=== PATIENT | male | born 1990 | race Caucasian/White ===

== ENCOUNTER 2018-11-30 10:44 | Emergency (ER) | payer SELFPAY ==
[2018-11-30] MEDS ORDERED: FLUORESCEIN SODIUM 1 MG/WRAP ONE (11:05)
[2018-11-30] MEDS ORDERED: TETRACAINE HCL 0.5% 2ML OPTH ONE (11:05)
--- NOTE | 2018-11-30 11:33 | EDPHYS ---
Physician Documentation [facility] Name: Fransisco Mata Age: 28 yrs Sex: Male : 1990 Arrival Date: 11/30/2018 Time: 10:46 Bed 17 Private MD: ED Physician Jonh Martinez HPI: 11/30 11:29 This 28 yrs old Male presents to ER via Ambulatory with complaints of Foreign miko Body In Eye. 11:29 The patient sustained Unknown. to the right eye. Onset: The symptoms/episode miko began/occurred yesterday, last night. Duration: the symptoms are continuous. Aggravated by blinking, light, opening eye, pressure, Alleviated by covering eye, lying down. Associated signs and symptoms: Pertinent positives: None. Pertinent negatives: None. Patient does not utilize any form of vision correction. Severity of symptoms: At their worst the symptoms were mild in the emergency department the symptoms are unchanged. The patient has not experienced similar symptoms in the past. Historical: - Allergies: 10:50 No Known Allergies; la1 - PMHx: 10:50 None; la1 - Immunization history:: Adult Immunizations up to date. - Social history:: Smoking status: Patient uses tobacco products, smokes one pack cigarettes per day. - Ebola Screening: : No symptoms or risks identified at this time. - Family history:: not pertinent. ROS: 11:29 Constitutional: Negative for fever, chills, and weight loss, ENT: Negative for injury, miko pain, and discharge, Neck: Negative for injury, pain, and swelling, Cardiovascular: Negative for chest pain, palpitations, and edema, Respiratory: Negative for shortness of breath, cough, wheezing, and pleuritic chest pain, Abdomen/GI: Negative for abdominal pain, nausea, vomiting, diarrhea, and constipation, Back: Negative for injury and pain, : Negative for injury, bleeding, discharge, and swelling, MS/Extremity: Negative for injury and deformity, Skin: Negative for injury, rash, and discoloration, Neuro: Negative for headache, weakness, numbness, tingling, and seizure, Psych: Negative for depression, anxiety, suicide ideation, homicidal ideation, and hallucinations, Allergy/Immunology: Negative for hives, rash, and allergies, Endocrine: Negative for neck swelling, polydipsia, polyuria, polyphagia, and marked weight changes, Hematologic/Lymphatic: Negative for swollen nodes, abnormal bleeding, and unusual bruising. 11:29 Eyes: Positive for foreign body sensation, pain, redness, of the iris of right eye and inner aspect of conjuctiva of right eye. Exam: 11:29 Constitutional: This is a well developed, well nourished patient who is awake, alert, miko and in no acute distress. Head/Face: Normocephalic, atraumatic. ENT: Nares patent. No nasal discharge, no septal abnormalities noted. Tympanic membranes are normal and external auditory canals are clear. Oropharynx with no redness, swelling, or masses, exudates, or evidence of obstruction, uvula midline. Mucous membranes moist. Neck: Trachea midline, no thyromegaly or masses palpated, and no cervical lymphadenopathy. Supple, full range of motion without nuchal rigidity, or vertebral point tenderness. No Meningismus. Chest/axilla: Normal chest wall appearance and motion. Nontender with no deformity. No lesions are appreciated. Cardiovascular: Regular rate and rhythm with a normal S1 and S2. No gallops, murmurs, or rubs. Normal PMI, no JVD. No pulse deficits. Respiratory: Lungs have equal breath sounds bilaterally, clear to auscultation and percussion. No rales, rhonchi or wheezes noted. No increased work of breathing, no retractions or nasal flaring. Abdomen/GI: Soft, non-tender, with normal bowel sounds. No distension or tympany. No guarding or rebound. No evidence of tenderness throughout. Back: No spinal tenderness. No costovertebral tenderness. Full range of motion. Skin: Warm, dry with normal turgor. Normal color with no rashes, no lesions, and no evidence of cellulitis. MS/ Extremity: Pulses equal, no cyanosis. Neurovascular intact. Full, normal range of motion. Neuro: Awake and alert, GCS 15, oriented to person, place, time, and situation. Cranial nerves II-XII grossly intact. Motor strength 5/5 in all extremities. Sensory grossly intact. Cerebellar exam normal. Normal gait. Psych: Awake, alert, with orientation to person, place and time. Behavior, mood, and affect are within normal limits. 11:29 Eyes: Pupils: no acute changes, equal, round, and reactive to light and accomodation, Extraocular movements: intact throughout, Conjunctiva: injected, Corneas: foreign body, on the right, at 3 o'clock, a fluorescein strip employed to appreciate the findings, Sclera: injected, Anterior chamber: normal, no acute changes, Lids and lashes: appear normal, no acute changes, Nystagmus: is not appreciated. Vital Signs: 10:50 BP 125 / 90; Pulse 84; Resp 16; Temp 97.5; Pulse Ox 98% on R/A; Weight 68.04 kg; Height la1 5 ft. 6 in. (167.64 cm); 10:50 Body Mass Index 24.21 (68.04 kg, 167.64 cm) la1 Visual Acuity: 10:55 Left Eye Visual acuity 20/100, Pupil size 4 mm, ; Right Eye Visual acuity 20/200, Pupil la1 size 4 mm, ; Both Eyes Visual acuity 20/100; Without Lenses; MDM: 10:51 Patient medically screened. [facility] 11:31 Data reviewed: vital signs, nurses notes. [facility] Administered Medications: 11:46 Drug: Tobrex 0.3 % 1 application Route: Ophthalmic; Site: right eye; em 11:48 Follow up: Response: No adverse reaction em 11:46 Drug: [place] 10 mg-325 mg 1 tabs Route: PO; em 11:49 Follow up: Response: Medication administered at discharge. em Disposition: 11/30/18 11:32 Discharged to Home. Impression: Injury of conjunctiva and corneal abrasion without foreign body - foreign body removed. - Condition is Stable. - Discharge Instructions: Corneal Abrasion, Corneal Abrasion, [id number]. - Prescriptions for Tobrex 0.3 % Ophthalmic ointment - apply 1 inch ribbon by OPHTHALMIC route 3 times per day; 3.5 gram. Tylenol- Codeine #3 300-30 mg Oral Tablet - take 2 tablet by ORAL route every 6 hours As needed; 30 tablet. - Medication Reconciliation Form, Thank You Letter, Antibiotic Education, Prescription Opioid Use, Work release form form. - Follow up: Nikolas Mayer MD; When: Tomorrow; Reason: Recheck today's complaints, Continuance of care, Re-evaluation by your physician. - Problem is new. - Symptoms have improved. Signatures: Jonh Martinez MD MD cha Munoz, Edgar, NEGATIVE ASSEMBLER NEGATIVE ASSEMBLERBo Mix RN RN la1 Corrections: (The following items were deleted from the chart) 11:50 11:32 11/30/2018 11:32 Discharged to Home. Impression: Injury of conjunctiva and em corneal abrasion without foreign body - foreign body removed. Condition is Stable. Forms are Medication Reconciliation Form, Thank You Letter, Antibiotic Education, Prescription Opioid Use. Follow up: Nikolas Mayer; When: Tomorrow; Reason: Recheck today's complaints, Continuance of care, Re-evaluation by your physician. Problem is new. Symptoms have improved. miko
--- NOTE | 2018-11-30 11:33 | ER ---
Nurse's Notes [facility] Name: Fransisco Mata Age: 28 yrs Sex: Male : 1990 Arrival Date: 11/30/2018 Time: 10:46 Bed 17 Private MD: Diagnosis: Injury of conjunctiva and corneal abrasion without foreign body-foreign body removed Presentation: 11/30 10:49 Presenting complaint: Patient states: I woke up this morning with something in my right la1 eye. Transition of care: patient was not received from another setting of care. Onset of symptoms was November 30, 2018. Risk Assessment: Do you want to hurt yourself or someone else? Patient reports no desire to harm self or others. Initial Sepsis Screen: Does the patient meet any 2 criteria? No. Patient's initial sepsis screen is negative. Does the patient have a suspected source of infection? No. Patient's initial sepsis screen is negative. Care prior to arrival: None. 10:49 Method Of Arrival: Ambulatory la1 10:49 Acuity: ANA 4 la1 Historical: - Allergies: 10:50 No Known Allergies; la1 - PMHx: 10:50 None; la1 - Immunization history:: Adult Immunizations up to date. - Social history:: Smoking status: Patient uses tobacco products, smokes one pack cigarettes per day. - Ebola Screening: : No symptoms or risks identified at this time. - Family history:: not pertinent. Screenin:56 Abuse screen: Denies threats or abuse. Nutritional screening: No deficits noted. la1 Tuberculosis screening: No symptoms or risk factors identified. Fall Risk None identified. Assessment: 10:55 General: Appears in no apparent distress. Behavior is calm, cooperative. Pain: la1 Complains of pain in right eye. Neuro: Level of Consciousness is awake, alert, obeys commands, Oriented to person, place, time, situation. Cardiovascular: Capillary refill < 3 seconds Patient's skin is warm and dry. EENT: Sclera/Cornea are reddened in outer aspect of conjuctiva of right eye and inner aspect of conjuctiva of right eye. 11:05 Reassessment: I agree with previous assessment. hb Vital Signs: 10:50 BP 125 / 90; Pulse 84; Resp 16; Temp 97.5; Pulse Ox 98% on R/A; Weight 68.04 kg; Height la1 5 ft. 6 in. (167.64 cm); 10:50 Body Mass Index 24.21 (68.04 kg, 167.64 cm) la1 Visual Acuity: 10:55 Left Eye Visual acuity 20/100, Pupil size 4 mm, ; Right Eye Visual acuity 20/200, Pupil la1 size 4 mm, ; Both Eyes Visual acuity 20/100; Without Lenses; ED Course: 10:46 Patient arrived in ED. as 10:49 Triage completed. la1 10:50 Arm band placed on left wrist. la1 10:51 Jonh Martinez MD is Attending Physician. [facility] 10:56 Call light in reach. Side rails up X 1. la1 10:57 Cholo Mora LVN is Primary Nurse. em 11:31 Nikolas Mayer MD is Referral Physician. miko 11:49 No provider procedures requiring assistance completed. Patient did not have IV access em during this emergency room visit. Administered Medications: 11:46 Drug: Tobrex 0.3 % 1 application Route: Ophthalmic; Site: right eye; em 11:48 Follow up: Response: No adverse reaction em 11:46 Drug: [place] 10 mg-325 mg 1 tabs Route: PO; em 11:49 Follow up: Response: Medication administered at discharge. em Outcome: 11:32 Discharge ordered by . [facility] 11:49 Discharged to home ambulatory. em 11:49 Condition: good 11:49 Discharge instructions given to patient, Instructed on discharge instructions, follow up and referral plans. medication usage, Demonstrated understanding of instructions, follow-up care, medications, Prescriptions given X 2. 11:50 Patient left the ED. em Signatures: Jonh Martinez MD MD cha Munoz, Edgar, LVN LVN em Sammi Calvin Lee RN RN la1 Sofia Mcadams, RN RN
[2018-11-30] MEDS ORDERED: TOBRAMYCIN SULF 0.3% OPTH OINT ONE (11:50)
[2018-11-30] MEDS ORDERED: HYDROCODONE/APAP 10/325 TAB ONE (11:50)
== END 2018-11-30 11:50 | disposition home or self-care (01) ==
LOC: ER 10:44
PROC: 08C8XZZ Extirpation of Matter from Right Cornea, External Approach (ICD-10-PCS; principal; 2018-11-30)
DX: T15.01XA Foreign body in cornea, right eye, initial encounter (principal)
CPT/HCPCS: 99283

== ENCOUNTER 2019-04-07 10:49 | Emergency (ER) | payer SELFPAY ==
[2019-04-07] MEDS ORDERED: ONDANSETRON 4 MG/2 ML VIAL ONE (11:11)
[2019-04-07] MEDS ORDERED: NA CHLORIDE 0.9% 1,000 ML ONE (11:11)
[2019-04-07 11:33] LABS: Absolute Lymphocytes (CBC) 1.8 K/uL (0.7-4.9); Basophils % 1.1 % (0-1.3); Hematocrit 45.8 % (39.6-49.0); Lymphocytes % 20.5 % (15.3-44.8); MPV 7.8 fL (7.6-11.3); RBC Red Blood Cell Count 4.93 M/uL (4.33-5.43)
[2019-04-07 11:50] LABS: ALT/SGPT 27 U/L (12-78); AST/SGOT 23 U/L (15-37); Albumin 4.2 g/dL (3.4-5.0); Alkaline Phosphatase 67 U/L (45-117); BUN Blood Urea Nitrogen 11 mg/dL (7-18); Bicarbonate 29 mmol/L (21-32); Bilirubin Direct 0.1 mg/dL (0-0.2); Bilirubin Total 0.3 mg/dL (0.2-1.0); Glucose Level 101 mg/dL (74-106); Lipase 126 U/L (73-393); Potassium 3.5 mmol/L (3.5-5.1); Protein, Total 7.4 g/dL (6.4-8.2); Sodium Level 140 mmol/L (136-145)
--- NOTE | 2019-04-07 12:00 | RAD REPORT ---
EXAM DESCRIPTION: US - Abdomen Exam Limited - 04/07/2019 11:51 am CLINICAL HISTORY: Abdominal pain. COMPARISON: None. FINDINGS: The gallbladder wall is not thickened. A gallstone is not seen. The biliary tree is normal caliber. IMPRESSION: Unremarkable gallbladder ultrasound.
[2019-04-07 12:05] LABS: Urine Bacteria NONE SEEN /HPF (NONE SEEN); Urine Culture Reflex Order NOT NEEDED; Urine RBC NONE SEEN /HPF (NONE SEEN)
--- NOTE | 2019-04-07 12:49 | RAD REPORT ---
EXAM DESCRIPTION: CTAbdomen Pelvis W Contrast - 04/07/2019 12:41 pm CLINICAL HISTORY: Abdominal pain. ABD PAIN COMPARISON: No comparisons TECHNIQUE: Biphasic CT imaging of the abdomen and pelvis was performed with 100 ml non-ionic IV cont rast. All CT scans are performed using dose optimization technique as appropriate and may include automated exposure control or mA/KV adjustment according to patient size. FINDINGS: The lung bases are clear. The liver contains a 10 mm low-density lesion in right lobe superiorly, likely benign cyst or other s imilar benign lesion. No aggressive liver lesion or biliary dilatation. The spleen, pancreas, adrenal glands and kidneys are within normal limits. No bowel obstruction, free air, free fluid or abscess. The appendix is normal. No evidence of signi ficant lymphadenopathy. No suspicious bony findings. IMPRESSION: No acute intra-abdominal or pelvic finding.
--- NOTE | 2019-04-07 13:02 | ER ---
Nurse's Notes [facility] Name: Fransisco Mata Age: 29 yrs Sex: Male : 1990 Arrival Date: 04/07/2019 Time: 10:52 Bed 7 Private MD: Diagnosis: Diarrhea, unspecified;Unspecified abdominal pain Presentation: 04/07 10:53 Presenting complaint: Patient states: epigastric pain for a few days worse today, la1 reports diarrhea. Transition of care: patient was not received from another setting of care. Onset of symptoms was April 07, 2019. Risk Assessment: Do you want to hurt yourself or someone else? Patient reports no desire to harm self or others. Initial Sepsis Screen: Does the patient meet any 2 criteria? No. Patient's initial sepsis screen is negative. Does the patient have a suspected source of infection? No. Patient's initial sepsis screen is negative. Care prior to arrival: None. 10:53 Method Of Arrival: Ambulatory la1 10:53 Acuity: ANA 3 la1 Historical: - Allergies: 10:54 No Known Allergies; la1 - PMHx: 10:54 None; la1 - Immunization history:: Adult Immunizations up to date. - Social history:: Smoking status: Patient uses tobacco products, smokes one pack cigarettes per day. - Ebola Screening: : No symptoms or risks identified at this time. - Family history:: not pertinent. - Hospitalizations: : No recent hospitalization is reported. Screenin:05 Abuse screen: Denies threats or abuse. Denies injuries from another. Nutritional hb screening: No deficits noted. Tuberculosis screening: No symptoms or risk factors identified. Fall Risk None identified. Assessment: 11:05 General: Appears in no apparent distress. Behavior is calm, cooperative. Pain: Pain hb currently is 5 out of 10 on a pain scale. Neuro: Level of Consciousness is awake, alert, obeys commands, Oriented to person, place, time, situation. 11:05 Cardiovascular: Heart tones S1 S2 present Capillary refill < 3 seconds Patient's skin hb is warm and dry. Respiratory: Airway is patent Respiratory effort is even, unlabored, Respiratory pattern is regular, symmetrical, Breath sounds are clear bilaterally. GI: Abdomen is non-distended, Bowel sounds present X 4 quads. Reports upper abdominal pain, nausea. : No signs and/or symptoms were reported regarding the genitourinary system. EENT: No signs and/or symptoms were reported regarding the EENT system. Derm: Skin is intact, is healthy with good turgor, Skin is pink, warm \T\ dry. Musculoskeletal: No signs and/or symptoms reported regarding the musculoskeletal system. 11:22 Reassessment: Pt to CT. hb 11:50 Reassessment: Pt returned from CT. hb 12:15 Reassessment: Patient appears in no apparent distress at this time. Patient and/or hb family updated on plan of care and expected duration. Pain level reassessed. Patient is alert, oriented x 3, equal unlabored respirations, skin warm/dry/pink. Vital Signs: 10:54 BP 143 / 92; Pulse 86; Resp 16; Temp 98.2; Pulse Ox 98% on R/A; Weight 68.04 kg; Height la1 5 ft. 6 in. (167.64 cm); 11:52 BP 101 / 66; Pulse 82; Resp 15; Pulse Ox 100% on R/A; Pain 2/10; hb 12:45 BP 103 / 63; Pulse 80; Resp 16; Pulse Ox 99% on R/A; hb 10:54 Body Mass Index 24.21 (68.04 kg, 167.64 cm) la1 ED Course: 10:52 Patient arrived in ED. as 10:54 Triage completed. la1 10:54 Arm band placed on right wrist. la1 10:56 Johnson Humphreys MD is Attending Physician. rn 11:05 Patient has correct armband on for positive identification. Bed in low position. Call hb light in reach. Side rails up X 1. 11:09 Marcos Shelton, RN is Primary Nurse. bp 11:18 Inserted saline lock: 20 gauge in right antecubital area, using aseptic technique. hb Blood collected. 11:20 Primary Nurse role handed off by Marcos Shelton, ROMAINE hb 11:20 Sofia Mcadams, ROMAINE is Primary Nurse. hb 11:54 US Abdomen Limited In Process Unspecified. EDMS 12:50 CT Abd/Pelvis - IV Contrast Only In Process Unspecified. EDMS 13:13 No provider procedures requiring assistance completed. IV discontinued, intact, hb bleeding controlled, No redness/swelling at site. Pressure dressing applied. Administered Medications: 11:18 Drug: Zofran 4 mg Route: IVP; Site: right antecubital; hb 12:00 Follow up: Response: No adverse reaction hb 11:18 Drug: NS 0.9% 1000 ml Route: IV; Rate: 1000 ml; Site: right antecubital; hb 12:22 Follow up: Response: No adverse reaction; IV Status: Completed infusion; IV Intake: hb 1000ml 13:08 Drug: LoMOTIL 2 tabs Route: PO; hb 13:14 Follow up: Response: Medication administered at discharge. hb Intake: 12:22 IV: 1000ml; Total: 1000ml. hb Outcome: 13:01 Discharge ordered by . rn 13:13 Discharged to home ambulatory. hb 13:13 Condition: stable 13:13 Discharge instructions given to patient, Instructed on discharge instructions, follow up and referral plans. medication usage, Demonstrated understanding of instructions, follow-up care, medications, Prescriptions given X 1. 13:15 Patient left the ED. hb Signatures: Dispatcher [employer] EDMS Sammi Calvin Roman, MD MD rn Attema, Lee, RN RN la1 Sofia Mcadams RN RN Marcos Shaikh RN RN bp
--- NOTE | 2019-04-07 13:03 | EDPHYS ---
Physician Documentation [facility] Name: Fransisco aMta Age: 29 yrs Sex: Male : 1990 Arrival Date: 04/07/2019 Time: 10:52 Bed 7 Private MD: ED Physician Johnson Humphreys HPI: 04/07 11:27 This 29 yrs old Male presents to ER via Ambulatory with complaints of rn Abdominal Pain. 11:27 The patient presents with abdominal pain right lower quadrant. Onset: The rn symptoms/episode began/occurred 3 day(s) ago. The symptoms do not radiate. Associated signs and symptoms: Pertinent positives: diarrhea, nausea, Pertinent negatives: blood in stools, dysuria, fever, shortness of breath, testicular pain. The symptoms are described as achy, crampy. Modifying factors: The symptoms are alleviated by nothing, the symptoms are aggravated by touching the area. Severity of pain: At its worst the pain was mild in the emergency department the pain is unchanged. The patient has not experienced similar symptoms in the past. The patient has not recently seen a physician. Historical: - Allergies: 10:54 No Known Allergies; la1 - PMHx: 10:54 None; la1 - Immunization history:: Adult Immunizations up to date. - Social history:: Smoking status: Patient uses tobacco products, smokes one pack cigarettes per day. - Ebola Screening: : No symptoms or risks identified at this time. - Family history:: not pertinent. - Hospitalizations: : No recent hospitalization is reported. ROS: 11:27 Constitutional: Negative for fever, chills, and weight loss, Eyes: Negative for injury, rn pain, redness, and discharge, Cardiovascular: Negative for chest pain, palpitations, and edema, Respiratory: Negative for shortness of breath, cough, wheezing, and pleuritic chest pain, Abdomen/GI: Negative for vomiting, and constipation, Back: Negative for injury and pain, MS/Extremity: Negative for injury and deformity, Skin: Negative for injury, rash, and discoloration, Neuro: Negative for headache, weakness, numbness, tingling, and seizure. Exam: 11:27 Constitutional: This is a well developed, well nourished patient who is awake, alert, rn and in no acute distress. Head/Face: Normocephalic, atraumatic. Eyes: Pupils equal round and reactive to light, extra-ocular motions intact. Lids and lashes normal. Conjunctiva and sclera are non-icteric and not injected. Cornea within normal limits. Periorbital areas with no swelling, redness, or edema. Cardiovascular: Regular rate and rhythm. No pulse deficits. Respiratory: No increased work of breathing, no retractions or nasal flaring. Abdomen/GI: soft, mild RLQ and periumbilical tenderness, no masses MS/ Extremity: Pulses equal, no cyanosis. Neurovascular intact. Full, normal range of motion. Equal circumference. Neuro: Awake and alert, GCS 15, oriented to person, place, time, and situation. Cranial nerves II-XII grossly intact. Motor strength 5/5 in all extremities. Sensory grossly intact. Cerebellar exam normal. Normal gait. Vital Signs: 10:54 BP 143 / 92; Pulse 86; Resp 16; Temp 98.2; Pulse Ox 98% on R/A; Weight 68.04 kg; Height la1 5 ft. 6 in. (167.64 cm); 11:52 BP 101 / 66; Pulse 82; Resp 15; Pulse Ox 100% on R/A; Pain 2/10; hb 12:45 BP 103 / 63; Pulse 80; Resp 16; Pulse Ox 99% on R/A; hb 10:54 Body Mass Index 24.21 (68.04 kg, 167.64 cm) la1 MDM: 10:56 Patient medically screened. rn 12:59 Differential diagnosis: appendicitis, cholecystitis, Cholelithiasis, diverticulitis, rn gastritis, gastroesophageal reflux disease, non-specific abd pain, urinary tract infection. 13:00 Data reviewed: vital signs, nurses notes, lab test result(s), radiologic studies, CT rn scan, ultrasound, and as a result, I will discharge patient. Counseling: I had a detailed discussion with the patient and/or guardian regarding: the historical points, exam findings, and any diagnostic results supporting the discharge/admit diagnosis, lab results, radiology results, the need for outpatient follow up, to return to the emergency department if symptoms worsen or persist or if there are any questions or concerns that arise at home. Response to treatment: the patient's symptoms have markedly improved after treatment, and as a result, I will discharge patient. Special discussion: Based on the patient's Hx, exam, and Dx evaluation, there is no indication for emergent surgery or inpatient Tx. It is understood by the patient/guardian that if the Sx's persist or worsen they need to return immediately for re-evaluation. I discussed with the patient/guardian in detail that at this point there is no indication for admission to the hospital. It is understood, however, that if the symptoms persist or worsen the patient needs to return immediately for re-evaluation. 04/07 11:08 Order name: Basic Metabolic Panel; Complete Time: 11:52 rn 04/07 11:08 Order name: CBC with Diff; Complete Time: 11:52 rn 04/07 11:08 Order name: Hepatic Function; Complete Time: :52 rn 04/07 11:08 Order name: Lipase; Complete Time: :52 rn 04/07 11:08 Order name: Urine Microscopic Only; Complete Time: 12:23 rn 04/07 11:42 Order name: Urine Dipstick--Ancillary (enter results) bd 04/07 11:08 Order name: IV Saline Lock; Complete Time: 11:22 rn 04/07 11:08 Order name: Labs collected and sent; Complete Time: 11:22 rn 04/07 11:08 Order name: CT Abd/Pelvis - IV Contrast Only; Complete Time: 12:59 rn 04/07 11:08 Order name: Urine Dipstick-Ancillary (obtain specimen); Complete Time: 11:44 rn 04/07 11:09 Order name: US Abdomen Limited; Complete Time: 12:23 rn Administered Medications: 11:18 Drug: Zofran 4 mg Route: IVP; Site: right antecubital; hb 12:00 Follow up: Response: No adverse reaction hb 11:18 Drug: NS 0.9% 1000 ml Route: IV; Rate: 1000 ml; Site: right antecubital; hb 12:22 Follow up: Response: No adverse reaction; IV Status: Completed infusion; IV Intake: hb 1000ml 13:08 Drug: LoMOTIL 2 tabs Route: PO; hb 13:14 Follow up: Response: Medication administered at discharge. hb Disposition: 04/07/19 13:01 Discharged to Home. Impression: Diarrhea, unspecified, Unspecified abdominal pain. - Condition is Stable. - Discharge Instructions: Abdominal Pain, Adult, Diarrhea, Adult. - Prescriptions for Zofran ODT 4 mg Oral tablet,disintegrating - place 1 tablet by TRANSLINGUAL route every 8 hours As needed; 20 tablet. - Medication Reconciliation Form, Thank You Letter, Antibiotic Education, Prescription Opioid Use, Work release form form. - Follow up: Private Physician; When: As needed; Reason: Recheck today's complaints, Re-evaluation by your physician. - Problem is new. - Symptoms have improved. Signatures: Dispatcher [employer] EDMS Johnson Humphreys MD MD rn Attema, Lee, RN RN la1 Sofia Mcadams RN RN hb Corrections: (The following items were deleted from the chart) 13:15 13:01 04/07/2019 13:01 Discharged to Home. Impression: Diarrhea, unspecified; hb Unspecified abdominal pain. Condition is Stable. Forms are Medication Reconciliation Form, Thank You Letter, Antibiotic Education, Prescription Opioid Use. Follow up: Private Physician; When: As needed; Reason: Recheck today's complaints, Re-evaluation by your physician. Problem is new. Symptoms have improved. rn
[2019-04-07] MEDS ORDERED: DIPHENOX/ATROP SULF 1 TAB PO ONE (13:06)
[2019-04-07 20:05] LABS: Urine Blood NEGATIVE (NEG); Urine Glucose NEGATIVE (NEG); Urine Protein NEGATIVE (NEG); Urine pH 6.5 (5.0-7.0)
== END 2019-04-07 13:15 | disposition home or self-care (01) ==
LOC: ER 10:49
DX: R19.7 Diarrhea, unspecified (principal); F17.210 Nicotine dependence, cigarettes, uncomplicated
CPT/HCPCS: 36415; 74177; 76705; 80048; 80076; 81003; 81015; 83690; 85025; 96361; 96374; 99284; J2405; J7030; Q9967

== ENCOUNTER 2019-06-29 09:08 | Emergency (ER) | payer SELFPAY ==
--- NOTE | 2019-06-29 11:07 | ER ---
Nurse's Notes [facility] Name: Fransisco Mata Age: 29 yrs Sex: Male : 1990 Arrival Date: 06/29/2019 Time: 09:13 Bed 6 Private MD: None, None Diagnosis: Inguinal hernia-left, reducable Presentation: 06/29 09:23 Presenting complaint: Patient states: about a month ago pt noticed left inguinal hernia dm5 and "splotches" on stomach showed up about a week ago. Pain rated at 4/10 at this time. 8/10 at the worst. Transition of care: patient was not received from another setting of care. Onset of symptoms was May 2019. Risk Assessment: Do you want to hurt yourself or someone else? Patient reports no desire to harm self or others. Initial Sepsis Screen: Does the patient meet any 2 criteria? No. Patient's initial sepsis screen is negative. Does the patient have a suspected source of infection? No. Patient's initial sepsis screen is negative. Care prior to arrival: None. 09:23 Method Of Arrival: Ambulatory dm5 09:23 Acuity: ANA 4 dm5 Triage Assessment: 09:26 General: Appears in no apparent distress. dm5 Historical: - Allergies: 09:26 No Known Allergies; dm5 - Home Meds: 09:26 None [Active]; dm5 - PMHx: 09:26 None; dm5 - PSHx: 09:26 right femur; dm5 Assessment: 09:52 Reassessment: called to exam room, no answer. Patient's belongings are in [email or web address] ss (backpack), but patient is nowhere to be found. Vital Signs: 09:27 BP 130 / 84; Pulse 75; Resp 18; Temp 97.9; Pulse Ox 99% on R/A; Weight 68.04 kg (R); dm5 Height 5 ft. 6 in. (167.64 cm); Pain 4/10; 09:27 Body Mass Index 24.21 (68.04 kg, 167.64 cm) dm5 ED Course: 09:13 Patient arrived in ED. mr 09:13 None, None is Private Physician. mr 09:26 Triage completed. dm5 09:26 Arm band placed on right wrist. Patient placed in waiting room. dm5 09:51 Jonh Martinez MD is Attending Physician. [facility] 10:51 Eran Soto, RN is Primary Nurse. 11:06 Gary Santizo MD is Referral Physician. [facility] Administered Medications: No medications were administered Outcome: 11:06 Discharge ordered by . [facility] 11:14 Patient left the ED. ss Signatures: Rosette Roblero, RN RN Eran Bailey, RN RN Jonh Martinez MD MD cha Rivera [facility] Fadia Joyce, RN RN ss
--- NOTE | 2019-06-29 11:07 | EDPHYS ---
Physician Documentation [facility] Name: Fransisco Mata Age: 29 yrs Sex: Male : 1990 Arrival Date: 06/29/2019 Time: 09:13 Bed 6 Private MD: None, None ED Physician Jonh Martinez HPI: 06/29 11:01 This 29 yrs old Male presents to ER via Ambulatory with complaints of Hernia. miko 11:01 The patient presents with abdominal pain in the lower abdomen. Onset: The miko symptoms/episode began/occurred 3 day(s) ago. The symptoms do not radiate. Historical: - Allergies: : No Known Allergies; dm5 - Home Meds: : None [Active]; dm5 - PMHx: : None; dm5 - PSHx: : right femur; dm5 ROS: 11:02 Constitutional: Negative for fever, chills, and weight loss, Eyes: Negative for injury, miko pain, redness, and discharge, ENT: Negative for injury, pain, and discharge, Neck: Negative for injury, pain, and swelling, Cardiovascular: Negative for chest pain, palpitations, and edema, Respiratory: Negative for shortness of breath, cough, wheezing, and pleuritic chest pain, Back: Negative for injury and pain, : Negative for injury, bleeding, discharge, and swelling, MS/Extremity: Negative for injury and deformity, Skin: Negative for injury, rash, and discoloration, Neuro: Negative for headache, weakness, numbness, tingling, and seizure, Psych: Negative for depression, anxiety, suicide ideation, homicidal ideation, and hallucinations, Allergy/Immunology: Negative for hives, rash, and allergies, Endocrine: Negative for neck swelling, polydipsia, polyuria, polyphagia, and marked weight changes, Hematologic/Lymphatic: Negative for swollen nodes, abnormal bleeding, and unusual bruising. 11:02 Abdomen/GI: Positive for abdominal pain, of the right lower quadrant and left lower quadrant. Exam: 11:02 Constitutional: This is a well developed, well nourished patient who is awake, alert, miko and in no acute distress. Head/Face: Normocephalic, atraumatic. Eyes: Pupils equal round and reactive to light, extra-ocular motions intact. Lids and lashes normal. Conjunctiva and sclera are non-icteric and not injected. Cornea within normal limits. Periorbital areas with no swelling, redness, or edema. ENT: Nares patent. No nasal discharge, no septal abnormalities noted. Tympanic membranes are normal and external auditory canals are clear. Oropharynx with no redness, swelling, or masses, exudates, or evidence of obstruction, uvula midline. Mucous membranes moist. Neck: Trachea midline, no thyromegaly or masses palpated, and no cervical lymphadenopathy. Supple, full range of motion without nuchal rigidity, or vertebral point tenderness. No Meningismus. Chest/axilla: Normal chest wall appearance and motion. Nontender with no deformity. No lesions are appreciated. Cardiovascular: Regular rate and rhythm with a normal S1 and S2. No gallops, murmurs, or rubs. Normal PMI, no JVD. No pulse deficits. Respiratory: Lungs have equal breath sounds bilaterally, clear to auscultation and percussion. No rales, rhonchi or wheezes noted. No increased work of breathing, no retractions or nasal flaring. Back: No spinal tenderness. No costovertebral tenderness. Full range of motion. Skin: Warm, dry with normal turgor. Normal color with no rashes, no lesions, and no evidence of cellulitis. MS/ Extremity: Pulses equal, no cyanosis. Neurovascular intact. Full, normal range of motion. Neuro: Awake and alert, GCS 15, oriented to person, place, time, and situation. Cranial nerves II-XII grossly intact. Motor strength 5/5 in all extremities. Sensory grossly intact. Cerebellar exam normal. Normal gait. Psych: Awake, alert, with orientation to person, place and time. Behavior, mood, and affect are within normal limits. 11:02 Abdomen/GI: Inspection: abdomen appears normal, Bowel sounds: normal, Palpation: mild abdominal tenderness, Liver: no appreciated palpable abnormalities, Hernia: not appreciated. Vital Signs: 09:27 BP 130 / 84; Pulse 75; Resp 18; Temp 97.9; Pulse Ox 99% on R/A; Weight 68.04 kg (R); dm5 Height 5 ft. 6 in. (167.64 cm); Pain 4/10; 09:27 Body Mass Index 24.21 (68.04 kg, 167.64 cm) dm5 MDM: 09:51 Patient medically screened. [facility] 11:05 Data reviewed: vital signs, nurses notes. [facility] Administered Medications: No medications were administered Disposition: 06/29/19 11:06 Discharged to Home. Impression: Inguinal hernia - left, reducable. - Condition is Stable. - Discharge Instructions: Inguinal Hernia, Adult, [id number], Inguinal Hernia, Adult. - Work release form, Medication Reconciliation Form, Thank You Letter, Antibiotic Education, Prescription Opioid Use form. - Follow up: Private Physician; When: 2 - 3 days; Reason: Recheck today's complaints, Re-evaluation by your physician. Follow up: Gary Santizo MD; When: 2 - 3 days; Reason: Recheck today's complaints, Re-evaluation by your physician. - Problem is new. - Symptoms have improved. Signatures: Rosette Roblero, RN RN dm5 Jonh Martinez MD MD cha Smirch, Shelby, RN RN ss Corrections: (The following items were deleted from the chart) 11:14 11:06 06/29/2019 11:06 Discharged to Home. Impression: Inguinal hernia - left, ss reducable. Condition is Stable. Forms are Medication Reconciliation Form, Thank You Letter, Antibiotic Education, Prescription Opioid Use. Follow up: Private Physician; When: 2 - 3 days; Reason: Recheck today's complaints, Re-evaluation by your physician. Follow up: Gary Santizo; When: 2 - 3 days; Reason: Recheck today's complaints, Re-evaluation by your physician. Problem is new. Symptoms have improved. [facility]
[2019-06-29 11:19] VITALS: BP 130/84; TEMP 97.9; O2SAT 99
== END 2019-06-29 11:14 | disposition home or self-care (01) ==
LOC: ER 09:08
DX: K40.90 Unilateral inguinal hernia, without obstruction or gangrene, not specified as recurrent (principal)
CPT/HCPCS: 99281

== ENCOUNTER 2020-01-11 12:48 | Emergency (ER) | payer SELFPAY ==
--- NOTE | 2020-01-11 14:49 | RAD REPORT ---
EXAM DESCRIPTION: US - Scrotum Testicles - 01/11/2020 2:26 pm CLINICAL HISTORY: left testicle pain COMPARISON: No comparisons FINDINGS: The right testicle 4.5 x 3.2 x 2.0 cm. No intratesticular masses or evidence of testicular torsion. The left testicle 4.8 x 1.9 x 2.6 cm. No intratesticular masses or evidence of testicular torsion. Right epididymis is mildly prominent relative to the left, likely within the limitations of normal. No pathologic fluid collections. IMPRESSION: Unremarkable study.
--- NOTE | 2020-01-11 15:21 | EDPHYS ---
Physician Documentation [facility] Name: Fransisco Mata Age: 29 yrs Sex: Male : 1990 Arrival Date: 01/11/2020 Time: 12:53 Bed 25 Private MD: ED Physician Johnson Humphreys HPI: 01/10 14:10 This 29 yrs old Male presents to ER via [employer] with complaints of cp Testicular Pain. 14:10 The patient presents with scrotal pain, of the left side, with swelling, tenderness, of cp the left inguinal area. Onset: The symptoms/episode began/occurred over 1 month. 14:10 Associated signs and symptoms: Pertinent negatives: abdominal pain, dysuria, fever, cp hematuria, nausea, vomiting. Severity of symptoms: in the emergency department the symptoms are unchanged, despite home interventions. The patient has experienced similar episodes in the past, a few times. Historical: - Allergies: 12:55 No Known Allergies; ll1 - PSHx: 12:55 right femur; ll1 - Immunization history:: Adult Immunizations up to date. - Social history:: Smoking status: Patient reports the use of cigarette tobacco products, smokes one-half pack cigarettes per day, Patient uses alcohol, only on a social basis. Patient/guardian denies using street drugs. ROS: 14:15 Constitutional: Negative for body aches, chills, fever. cp 14:15 Abdomen/GI: Negative for abdominal pain, nausea, vomiting, and diarrhea. cp 14:15 Back: Negative for pain at rest, pain with movement. 14:15 : Positive for testicular pain left groin pain, Negative for urinary symptoms, flank pain, penile discharge. 14:15 Skin: Negative for rash. 14:15 Neuro: Negative for headache, numbness, weakness. 14:15 All other systems are negative. Exam: 14:30 Constitutional: The patient appears in no acute distress, alert, awake, well developed, cp well nourished. 14:30 Head/Face: Normocephalic, atraumatic. cp 14:30 Eyes: Periorbital structures: appear normal, Conjunctiva: normal, no exudate, no injection, Sclera: no appreciated abnormality, Lids and lashes: appear normal, bilaterally. 14:30 ENT: External ear(s): are unremarkable, Nose: is normal, Mouth: Lips: moist, Oral mucosa: moist, Posterior pharynx: Airway: no evidence of obstruction, patent. 14:30 Chest/axilla: Inspection: normal. 14:30 Cardiovascular: Rate: normal. 14:30 Respiratory: the patient does not display signs of respiratory distress, Respirations: normal. 14:30 Abdomen/GI: Inspection: abdomen appears normal, Bowel sounds: active, all quadrants, Palpation: abdomen is soft and non-tender, in all quadrants, rebound tenderness, is not appreciated, involuntary guarding, is not appreciated. 14:30 : Male external genitalia: Circumcision noted. swelling: is noted in the left inguinal area, small hernia appreciated that is reducible, tenderness, of the left testicle is noted, is palpated in the left inguinal area, that is mild. 14:30 Skin: cellulitis, is not appreciated, no rash present. Vital Signs: 12:53 BP 130 / 74; Pulse 73; Resp 17; Temp 98.0; Pulse Ox 100% ; Pain 7/10; ll1 15:29 BP 111 / 70; Pulse 61; Resp 16; Temp 97.9; Pulse Ox 100% ; Pain 5/10; ll1 MDM: 14:01 Patient medically screened. cp 14:10 Differential diagnosis: UTI, prostatitis, urethritis, testicular torsion, incarcerated cp hernia, STD, epididymitis. 15:18 Data reviewed: vital signs, nurses notes, radiologic studies, ultrasound. cp 15:18 Counseling: I had a detailed discussion with the patient and/or guardian regarding: the cp historical points, exam findings, and any diagnostic results supporting the discharge/admit diagnosis, radiology results, the need for outpatient follow up, for definitive care, a general surgeon, to return to the emergency department if symptoms worsen or persist or if there are any questions or concerns that arise at home. Response to treatment: the patient's symptoms have markedly improved after treatment, and as a result, I will discharge patient. 01/10 15:13 Order name: Urine Dipstick--Ancillary (enter results) bd 01/10 14:02 Order name: Urine Dipstick-Ancillary (obtain specimen); Complete Time: 15:30 cp 01/10 14:02 Order name: US Scrotum Testicles; Complete Time: 14:59 cp Administered Medications: No medications were administered Disposition: 15:35 Chart complete. cp Disposition: 01/11/20 15:19 Discharged to Home. Impression: Inguinal hernia - left, reducible. - Condition is Stable. - Discharge Instructions: Inguinal Hernia, Adult. - Prescriptions for Naprosyn 500 mg Oral Tablet - take 1 tablet by ORAL route 2 times per day take with food; 20 tablet. - Medication Reconciliation Form, Thank You Letter, Antibiotic Education, Prescription Opioid Use form. - Follow up: Gary Santizo MD; When: 1 - 2 days; Reason: Recheck today's complaints. - Problem is an ongoing problem. - Symptoms have improved. Addendum: 01/18/2020 07:07 Co-signature as Attending Physician, Johnson Humphreys MD. r n Signatures: Dispatcher [employer] EDMS Johnson Humphreys MD MD rn Jonh Humphrey PA PA cp Lewis, Lynsay, RN RN ll1 Corrections: (The following items were deleted from the chart) 01/10 15:30 15:19 01/11/2020 15:19 Discharged to Home. Impression: Inguinal hernia - left, ll1 reducible. Condition is Stable. Forms are Medication Reconciliation Form, Thank You Letter, Antibiotic Education, Prescription Opioid Use. Follow up: Gary Santizo; When: 1 - 2 days; Reason: Recheck today's complaints. Problem is an ongoing problem. Symptoms have improved. cp
--- NOTE | 2020-01-11 15:21 | ER ---
Nurse's Notes [facility] Name: Fransisco Mata Age: 29 yrs Sex: Male : 1990 Arrival Date: 01/11/2020 Time: 12:53 Bed 25 Private MD: Diagnosis: Inguinal hernia-left, reducible Presentation: 01/10 12:53 Chief complaint: Patient states: Reports testicular hernia for 1 month. Coronavirus ll1 screen: Proceed with normal triage. Patient denies a cough. Patient denies shortness of breath or difficulty breathing. Patient denies measured and/or subjective temperature greater than 100.4F prior to today's visit. Patient denies travel on a cruise ship or to a country the [facility] [place] currently lists as an affected area. Patient denies contact with known and/or suspected case of COVID-19. Ebola Screen: Patient denies travel to an Ebola-affected area in the 21 days before illness onset. Initial Sepsis Screen: Does the patient meet any 2 criteria? No. Patient's initial sepsis screen is negative. Does the patient have a suspected source of infection? No. Patient's initial sepsis screen is negative. Risk Assessment: Do you want to hurt yourself or someone else? Patient reports no desire to harm self or others. Onset of symptoms was December 12, 2019. 12:53 Method Of Arrival: [employer] Enforcement: [place] [employer] ll1 12:53 Acuity: AAN 3 ll1 Historical: - Allergies: 12:55 No Known Allergies; ll1 - PSHx: 12:55 right femur; ll1 - Immunization history:: Adult Immunizations up to date. - Social history:: Smoking status: Patient reports the use of cigarette tobacco products, smokes one-half pack cigarettes per day, Patient uses alcohol, only on a social basis. Patient/guardian denies using street drugs. Screenin:56 Abuse screen: Denies threats or abuse. Nutritional screening: No deficits noted. ll1 Tuberculosis screening: No symptoms or risk factors identified. Fall Risk None identified. Total Morrow Fall Scale indicates No Risk (0-24 pts). Assessment: 13:02 General: Appears in no apparent distress. Behavior is cooperative, anxious. General: ll1 please see doctors/physician assessment for further details.. Pain: Complains of pain in testicles Pain currently is 7 out of 10 on a pain scale. Quality of pain is described as aching, Pain began 1 month ago. Neuro: No deficits noted. Cardiovascular: No deficits noted. Respiratory: No deficits noted. GI: No deficits noted. : Reports scrotum pain for 1 month. States he as hernia. Vital Signs: 12:53 BP 130 / 74; Pulse 73; Resp 17; Temp 98.0; Pulse Ox 100% ; Pain 7/10; ll1 15:29 BP 111 / 70; Pulse 61; Resp 16; Temp 97.9; Pulse Ox 100% ; Pain 5/10; ll1 ED Course: 12:53 Patient arrived in ED. ll1 12:54 Triage completed. ll1 12:55 Arm band placed on Patient placed in an exam room, on a stretcher. ll1 12:56 Patient has correct armband on for positive identification. Bed in low position. Call ll1 light in reach. Side rails up X 1. [place] P.D[employer] at bedside. 12:57 Zbigniew Hoffman, RN is Primary Nurse. ll1 13:51 Jonh Humphrey PA is PHCP. cp 13:51 Johnson Humphreys MD is Attending Physician. cp 14:27 Scrotum Testicles In Process Unspecified. EDMS 15:19 Gary Santizo MD is Referral Physician. cp 15:29 No provider procedures requiring assistance completed. Patient did not have IV access ll1 during this emergency room visit. Administered Medications: No medications were administered Outcome: 15:19 Discharge ordered by . cp 15:29 Discharged to home with [place] [employer] ll1 15:29 Condition: stable 15:29 Discharge instructions given to patient, police, Instructed on discharge instructions, follow up and referral plans. medication usage, Demonstrated understanding of instructions, follow-up care, medications, Prescriptions given X 1. 15:30 Patient left the ED. ll1 Signatures: Dispatcher [employer] EDAK Jonh Humphrey PA PA cp Zbigniew Hoffman, RN RN ll1
[2020-01-11 15:34] VITALS: O2SAT 100
[2020-01-11 15:35] VITALS: BP 111/70; TEMP 97.9
[2020-01-11 18:30] LABS: Urine Blood NEGATIVE (NEG); Urine Glucose NEGATIVE (NEG); Urine Protein TRACE (NEG); Urine Specific Gravity >1.030 (1.005-1.030)
== END 2020-01-11 15:30 | disposition home or self-care (01) ==
LOC: ER 12:48
DX: K40.90 Unilateral inguinal hernia, without obstruction or gangrene, not specified as recurrent (principal); F17.210 Nicotine dependence, cigarettes, uncomplicated
CPT/HCPCS: 76870; 81003; 99283

== ENCOUNTER 2021-07-20 08:04 | Emergency (ER) | payer SELFPAY ==
--- OUTSIDE RECORDS SUMMARY | 2021-07-20 08:07 | XMS REPORT | Continuity of Care Document ---
:1990 Author Organization [facility] t Address [address] [place] [address] Care Team Providers Name Role Phone PCP, DOES NOT HAVE A Primary Care Physician Unavailable Abdias REES Attending Clinician Unavailable Abdias REES Admitting Clinician Unavailable Problems This patient has no known problems. Allergies, Adverse Reactions, Alerts Allergy Allergy Status Severity Reaction(s) Onset Inactive Treating Comm ents Source Name Type Date Date Clinician NO KNOWN Drug Active [facility] Medications This patient has no known medications. Procedures This patient has no known procedures. Encounters Start End Encounter Admission Attending Care Care Encounter Source Date/Time Date/Time Type Type Clinicians Facility Department ID 2021-06-26 Emergency [facility] [id number] [facility] 05:00:29 [facility] 2021-06-25 Emergency [facility] [id number] [facility] 23:21:36 [facility] 2021-06-25 Emergency [facility] [id number] [facility] 03:53:46 [facility] 2020-01-01 2020-01-02 Emergency X [facility] ERT [id number] [facility] 23:51:46 02:50:00 [facility] Results This patient has no known results.
[2021-07-20] MEDS ORDERED: ASPIRIN EC 81 MG TAB PO ONE (08:22)
[2021-07-20] MEDS ORDERED: NA CHLORIDE 0.9% 1,000 ML ONE (08:34)
[2021-07-20 08:36] LABS: Absolute Lymphocytes (CBC) 2.2 K/uL (0.7-4.9); Basophils % 0.5 % (0-1.3); Hematocrit 40.2 % (39.6-49.0); Lymphocytes % 18.3 % (15.3-44.8); MPV 7.5 fL (7.6-11.3); RBC Red Blood Cell Count 4.55 M/uL (4.33-5.43)
[2021-07-20 08:38] LABS: Protime INR 1.15
--- NOTE | 2021-07-20 08:44 | RAD REPORT ---
EXAM DESCRIPTION: Alan Single View07/20/2021 8:20 am CLINICAL HISTORY: Chest pain COMPARISON: 2015 FINDINGS: The lungs appear clear of acute infiltrate. The heart is normal size IMPRESSION: No acute abnormalities displayed
[2021-07-20 09:01] LABS: ALT/SGPT 25 U/L (12-78); AST/SGOT 28 U/L (15-37); Albumin 3.9 g/dL (3.4-5.0); Alkaline Phosphatase 54 U/L (45-117); BUN Blood Urea Nitrogen 14 mg/dL (7-18); Bicarbonate 28 mmol/L (21-32); Bilirubin Direct < 0.1 mg/dL (0-0.2); Bilirubin Total 0.4 mg/dL (0.2-1.0); Creatine Phosphokinase 312 U/L (39-308); Glucose Level 100 mg/dL (74-106); Magnesium 2.2 mg/dL (1.8-2.4); NT PRO-BNP 47 pg/mL (<125); Potassium 3.7 mmol/L (3.5-5.1); Protein, Total 7.2 g/dL (6.4-8.2); Sodium Level 138 mmol/L (136-145); Troponin (Emerg Dept Use Only) < 0.02 ng/mL (0.0-0.045)
[2021-07-20 09:21] LABS: Urine Blood Negative (Negative); Urine Glucose Negative (Negative); Urine Protein Negative (Negative); Urine Specific Gravity 1.025 (1.005-1.030); Urine pH 7.5 (5.0-7.0)
[2021-07-20 09:52] LABS: Barbiturates NEGATIVE (NEGATIVE); Benzodiazepines NEGATIVE (NEGATIVE); Cocaine NEGATIVE (NEGATIVE); METHAMPHETAM POSITIVE (NEGATIVE); Methadone NEGATIVE (NEGATIVE); Opiates NEGATIVE (NEGATIVE); Phencyclidine NEGATIVE (NEGATIVE); THC Cannibis NEGATIVE (NEGATIVE)
--- NOTE | 2021-07-20 12:09 | ER ---
Nurse's Notes [facility] Name: Fransisco Mata Age: 31 yrs Sex: Male : 1990 Arrival Date: 07/20/2021 Time: 08:05 Bed External Waiting Private MD: Diagnosis: Chest pain, unspecified;Adverse effect of amphetamines Presentation: 07/20 08:07 Chief complaint: EMS states: Pt c/o chest pain, does not radiate. Once pt was placed in vg1 EMS pt stated pain had subsided. Pt told EMS was 'homeless and used meth yesterday'. Also was stated pt BP was 155/100. Ebola Screen: Patient negative for fever greater than or equal to 101.5 degrees Fahrenheit, and additional compatible Ebola Virus Disease symptoms. Initial Sepsis Screen:. Onset of symptoms was July 20, 2021. 08:07 Method Of Arrival: EMS: [facility] 1 08:07 Acuity: ANA 3 vg1 08:47 Coronavirus screen: Vaccine status: Patient reports being unvaccinated. Initial Sepsis sl2 Screen: Does the patient meet any 2 criteria? No. Patient's initial sepsis screen is negative. Does the patient have a suspected source of infection? No. Patient's initial sepsis screen is negative. Risk Assessment: Do you want to hurt yourself or someone else? Patient reports no desire to harm self or others. Triage Assessment: 08:09 General: Appears in no apparent distress. uncomfortable, Behavior is cooperative, vg1 anxious. Pain: Denies pain. Cardiovascular: Patient's skin is warm and dry. Historical: - Allergies: 08:09 No Known Allergies; vg1 - Home Meds: 08:09 None [Active]; vg1 - PMHx: 08:09 Depressive disorder; Anxiety; Bipolar disorder; ADHD; Groin Hernia; vg1 - PSHx: 08:09 Metal Darrell in Right Femur; vg1 - Social history:: Smoking status: Patient reports the use of cigarette tobacco products, smokes one pack cigarettes per day. Patient uses street drugs, marijuana, Methamphetamine (Meth). Screenin:41 Abuse screen: Denies threats or abuse. Denies injuries from another. Nutritional sl2 screening: No deficits noted. Tuberculosis screening: No symptoms or risk factors identified. Fall Risk None identified. Assessment: 08:41 General: Appears in no apparent distress. well groomed, well developed, Behavior is sl2 calm, cooperative, Reports having chest pain that lasted a few minutes then went away, states he is experiencing a lot of stress. Pain: Denies pain. Pain does not radiate. Pain began suddenly. Neuro: No deficits noted. 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 Full function Gait is steady, Speech is normal, Facial symmetry appears normal. Cardiovascular: Reports chest pain prior to ER arrival that lasted a few minutes then went away, patient admits to experiencing a lot of stress - states was walking from [place] to [place] Denies fatigue, lightheadedness, nausea, palpitations, shortness of breath, Capillary refill < 3 seconds Rhythm is regular. Respiratory: No deficits noted. Reports Airway is patent Trachea midline Respiratory effort is even, unlabored, Respiratory pattern is regular, symmetrical, Breath sounds are clear bilaterally. GI: No deficits noted. No signs and/or symptoms were reported involving the gastrointestinal system. : No deficits noted. No signs and/or symptoms were reported regarding the genitourinary system. EENT: No deficits noted. No signs and/or symptoms were reported regarding the EENT system. Derm: No deficits noted. No signs and/or symptoms reported regarding the dermatologic system. Musculoskeletal: No deficits noted. No signs and/or symptoms reported regarding the musculoskeletal system. 11:40 Reassessment: Pt insist on leaving because he is feeling better and because he has ss "things to do." AMA form signed. Pt ambulated out of ED with belongings, steady gait noted. General: Appears in no apparent distress. comfortable, Behavior is calm, cooperative. Respiratory: Airway is patent Respiratory effort is even, unlabored, Respiratory pattern is regular, symmetrical. Vital Signs: 08:07 Weight 68.04 kg; Height 5 ft. 6 in. (167.64 cm); vg1 08:19 BP 129 / 84; Pulse 83; Resp 18; Temp 98.5(O); Pulse Ox 100% on R/A; sl2 08:30 BP 128 / 92; Pulse 81; Resp 18; Pulse Ox 100% ; sl2 09:30 BP 125 / 83; Pulse 87; Resp 18; Temp 98.4(O); Pulse Ox 100% on R/A; sl2 10:15 BP 129 / 75; Pulse 71; Resp 16; Pulse Ox 97% on R/A; sl2 08:07 Body Mass Index 24.21 (68.04 kg, 167.64 cm) vg1 ED Course: 08:05 Patient arrived in ED. ds1 08:06 Jonh Humphrey PA is PHCP. cp 08:06 Tray Hernandez MD is Attending Physician. cp 08:09 Triage completed. vg1 08:09 Arm band placed on. vg1 08:12 Maintain EMS IV. Dressing intact. Site clean \\T\\ dry. Gauge \\T\\ site: 18 L AC. vg 1 08:14 Patient has correct armband on for positive identification. Placed in gown. Bed in low mh5 position. Call light in reach. Side rails up X2. Warm blanket given. advisory services associate on. Pulse ox on. NIBP on. 08:19 Suellen Edward, RN is Primary Nurse. sl2 08:20 XRAY Chest (1 view) In Process Unspecified. EDMS 08:41 No provider procedures requiring assistance completed. sl2 08:48 Patient maintains SpO2 saturation greater than 95% on room air. sl2 09:23 UDS Sent. 5 09:23 Initial lab(s) drawn, by ar, sent to lab. Urine collected: clean catch specimen, clear. mh5 10:28 COVID swab sent to lab. sl2 11:30 Urine Dipstick-Ancillary Sent. 5 11:39 IV discontinued, intact, bleeding controlled, No redness/swelling at site. Pressure ss dressing applied. Administered Medications: 08:20 Drug: Aspirin Chewable Tablet 324 mg Route: PO; 2 10:27 Follow up: Response: No adverse reaction sl2 08:33 Drug: NS 0.9% 1000 ml Route: IV; Rate: 1 bolus; Site: left antecubital; 2 10:27 Follow up: Response: No adverse reaction; IV Status: Completed infusion 2 Outcome: 11:39 AMA AMA form signed ss 11:39 Condition: good 11:39 Instructed on follow up and referral plans. Pt verbalizes understanding importance of staying, but still insist he must go. 12:09 Patient left the ED. ss Signatures: Dis[facility] Radha ds1 Fadia Joyce, RN RN ss Jonh Humphrey PA PA cp Martinez, [facility] Camryn Peter, RN RN vg1 Suellen Edward RN RN sl2
--- NOTE | 2021-07-20 12:10 | EDPHYS ---
Physician Documentation [facility] Name: Fransisco Mata Age: 31 yrs Sex: Male : 1990 Arrival Date: 07/20/2021 Time: 08:05 Bed External Waiting Private MD: ED Physician Tray Hernandez HPI: 07/20 08:07 This 31 yrs old Male presents to ER via Unassigned with complaints of Chest Pain. cp 08:07 The patient or guardian reports chest pain that is located primarily in the anterior cp chest wall, left. 08:07 The pain does not radiate. Associated signs and symptoms: The patient has no apparent cp associated signs or symptoms. The chest pain is described as sharp. Duration: The patient or guardian reports a single episode, that is now resolved. Patient reports episode of chest pain that started while walking today at about 0730. Patient reports pain now resolved. Admits to use of methamphetamine yesterday. Historical: - Allergies: 08:09 No Known Allergies; vg1 - Home Meds: 08:09 None [Active]; vg1 - PMHx: 08:09 Depressive disorder; Anxiety; Bipolar disorder; ADHD; Groin Hernia; vg1 - PSHx: 08:09 Metal Darrell in Right Femur; vg1 - Social history:: Smoking status: Patient reports the use of cigarette tobacco products, smokes one pack cigarettes per day. Patient uses street drugs, marijuana, Methamphetamine (Meth). ROS: 08:10 Cardiovascular: Positive for chest pain, Negative for edema. cp 08:10 Eyes: Negative for injury, pain, redness, and discharge. cp 08:10 Constitutional: Negative for body aches, chills, fever, poor PO intake. 08:10 Respiratory: Negative for cough, shortness of breath, wheezing. 08:10 ENT: Negative for ear pain, sore throat, difficulty swallowing, difficulty handling cp secretions. 08:10 Abdomen/GI: Negative for abdominal pain, nausea, vomiting, and diarrhea. 08:10 Back: Negative for pain at rest, pain with movement. 08:10 Skin: Negative for rash. 08:10 Neuro: Negative for altered mental status, dizziness, headache, syncope, weakness. 08:10 All other systems are negative. Exam: 08:14 ECG was reviewed by the Attending Physician. cp 08:17 Constitutional: The patient appears in no acute distress, alert, awake, cp non-diaphoretic, non-toxic, well developed, well nourished. 08:17 Head/Face: Normocephalic, atraumatic. cp 08:17 Eyes: Periorbital structures: appear normal, Conjunctiva: normal, no exudate, no injection, Sclera: no appreciated abnormality, Lids and lashes: appear normal, bilaterally. 08:17 ENT: External ear(s): are unremarkable, Nose: is normal, Mouth: Lips: moist, Oral mucosa: moist, Posterior pharynx: Airway: no evidence of obstruction, patent. 08:17 Neck: ROM/movement: is normal, is supple, without pain, no range of motions limitations. 08:17 Chest/axilla: Inspection: normal, Palpation: is normal, no crepitus, no tenderness. 08:17 Cardiovascular: Rate: normal, Rhythm: regular, Heart sounds: murmur, not appreciated, Edema: is not appreciated, JVD: is not appreciated. 08:17 Respiratory: the patient does not display signs of respiratory distress, Respirations: normal, no use of accessory muscles, no retractions, Breath sounds: are clear throughout, no decreased breath sounds, no stridor, no wheezing. 08:17 Abdomen/GI: Inspection: abdomen appears normal, Palpation: abdomen is soft and non-tender, in all quadrants. 08:17 Neuro: Orientation: to person, place \T\ time. Mentation: is normal, Motor: moves all fours, strength is normal, Sensation: is normal. Vital Signs: 08:07 Weight 68.04 kg; Height 5 ft. 6 in. (167.64 cm); vg1 08:19 BP 129 / 84; Pulse 83; Resp 18; Temp 98.5(O); Pulse Ox 100% on R/A; sl2 08:30 BP 128 / 92; Pulse 81; Resp 18; Pulse Ox 100% ; sl2 09:30 BP 125 / 83; Pulse 87; Resp 18; Temp 98.4(O); Pulse Ox 100% on R/A; sl2 10:15 BP 129 / 75; Pulse 71; Resp 16; Pulse Ox 97% on R/A; sl2 08:07 Body Mass Index 24.21 (68.04 kg, 167.64 cm) vg1 MDM: 08:07 Patient medically screened. 08:30 Differential diagnosis: abnormal EKG, acute myocardial infarction, chest wall pain, cp costochondritis, pericarditis, pleurisy, pneumonia, pneumothorax, pulmonary embolus, thoracic aortic disection. 12:05 Data reviewed: vital signs, nurses notes, lab test result(s), EKG, radiologic studies, cp plain films. 12:05 Test interpretation: by ED physician or midlevel provider: ECG, plain radiologic cp studies. 07/20 08:07 Order name: Basic Metabolic Panel; Complete Time: 09:31 07/20 10:23 Interpretation: Reviewed. 07/20 08:07 Order name: CBC with Diff; Complete Time: 09:31 07/20 09:31 Interpretation: Normal except: WBC 12.10; HGB 13.3; MCV 88.2; MPV 7.5; NEUT A 8.6. 07/20 08:07 Order name: LFT's; Complete Time: 09:31 07/20 08:07 Order name: Magnesium; Complete Time: 09:31 07/20 08:07 Order name: NT PRO-BNP; Complete Time: 09:31 07/20 08:07 Order name: PT-INR; Complete Time: 09:31 07/20 08:07 Order name: Troponin (emerg Dept Use Only); Complete Time: 09:31 07/20 09:32 Interpretation: Reviewed. 07/20 08:07 Order name: XRAY Chest (1 view); Complete Time: 09:31 07/20 08:07 Order name: EKG; Complete Time: 08:08 07/20 08:07 Order name: UDS; Complete Time: 10:23 07/20 10:23 Interpretation: Normal except: METHAMPHETAMINE POSITIVE. 07/20 08:07 Order name: CK; Complete Time: 09:31 07/20 09:32 Interpretation: Abnormal: CPK 312. 07/20 09:21 Order name: Urine Dipstick-Ancillary EDMS 07/20 08:07 Order name: Cardiac monitoring; Complete Time: 08:15 07/20 08:07 Order name: EKG - Nurse/Tech; Complete Time: 08:15 07/20 08:07 Order name: IV Saline Lock; Complete Time: 08:15 07/20 08:07 Order name: Labs collected and sent; Complete Time: 08:40 cp 07/20 08:07 Order name: O2 Per Protocol; Complete Time: :15 cp 07/20 08:07 Order name: O2 Sat Monitoring; Complete Time: :15 cp EC:14 Rate is 80 beats/min. Rhythm is regular. OR interval is normal. QRS interval is cp prolonged at 102 msec. QT interval is normal. T waves are Inverted in lead aVR. Interpreted by me. Reviewed by me. Administered Medications: 08:20 Drug: Aspirin Chewable Tablet 324 mg Route: PO; sl2 10:27 Follow up: Response: No adverse reaction sl2 08:33 Drug: NS 0.9% 1000 ml Route: IV; Rate: 1 bolus; Site: left antecubital; sl2 10:27 Follow up: Response: No adverse reaction; IV Status: Completed infusion sl2 Disposition Summary: 07/20/21 12:09 Left Against Medical Advice Location: Home cp Problem: new cp Symptoms: are resolved cp Condition: Stable cp Diagnosis - Chest pain, unspecified cp - Adverse effect of amphetamines cp Followup: cp - With: Private Physician - When: 1 - 2 days - Reason: Recheck today's complaints Discharge Instructions: - Discharge Summary Sheet cp - Nonspecific Chest Pain, Adult cp - Aspirin and Your Heart cp Signatures: Dispatcher [employer] EDJonh Gurrola PA PA cp Garcia, Victoria, RN RN vg1 Suellen Edward RN RN sl2
[2021-07-20 12:23] VITALS: TEMP 98.4
[2021-07-20 12:24] VITALS: BP 129/75; O2SAT 97
== END 2021-07-20 12:09 | disposition left against medical advice (07) ==
LOC: ER 08:04
DX: R07.9 Chest pain, unspecified (principal); T43.625A Adverse effect of amphetamines, initial encounter; F31.9 Bipolar disorder, unspecified; F17.210 Nicotine dependence, cigarettes, uncomplicated
CPT/HCPCS: 36415; 71045; 80048; 80076; 80307; 81003; 82550; 83735; 83880; 84484; 85025; 85610; 93005; 96360; 96361; 99285; J7030

== ENCOUNTER 2022-04-14 22:21 | Emergency (ER) | payer SELFPAY ==
--- OUTSIDE RECORDS SUMMARY | 2022-04-14 22:24 | XMS REPORT | Continuity of Care Document ---
:[address] [facility] t Address [address] [place] [address] Care Team Providers Name Role Phone [facility] Primary Care Physician Wander Hernandez MD Attending Clinician Payers Payer Name Policy Type Policy Number Effective Date Expiration Date S ource Problems Condition Condition Condition Status Onset Resolution Last Treating Co mments Source Name Details Category Date Date Treatment Clinician Date Closed Closed Disease Active Overview: Univer s fracture fracture 3-14 Formattin ity of of right of right 00:00: g of this Francois as orbital orbital 00 note Medical floor with floor with might be Branch routine routine different healing, healing, from the subsequent subsequent original. encounter encounter Added automatic ally from request for surgery [id number] AMS AMS Disease Active Univers (altered (altered 6-05 ity of mental mental 00:00: [place] status) status) 00 Medical Branch Concussion Concussion Disease Active 2015-08 U nivers 0-04 ity of 00:00: [place] 00 Medical Branch Leg Leg Disease Active 2015-08 Univers laceration laceration 0-04 it y of , right, , right, 00:00: [place] initial initial 00 Medical encounter encounter Bran ch Elbow Elbow Disease Active 2015-08 Univers laceration laceration 0-04 it y of , right, , right, 00:00: [place] initial initial 00 Medical encounter encounter Bran ch Nasal bone Nasal bone Disease Active 2015-08 U nivers fracture fracture 0-04 ity of 00:00: [place] 00 Medical Branch Closed Closed Disease Active 2015-08 [facility] fracture fracture 0-04 [place] of of distal [place] distal [place] end of Medical right right Branch femur femur Splenic Splenic Disease Active 2015-08 Univers laceration laceration 0-04 it y of 00:00: [place] 00 Medical Branch Allergies, Adverse Reactions, Alerts This patient has no known allergies or adverse reactions. Social History Social Habit Start Date Stop Date Quantity Comments Source Alcohol intake 2021-12-22 2021-12-22 Current drinker Unive rsity of 00:00:00 00:00:00 of alcohol [facility] [place] [facility] (finding) Branch Exposure to 2021-10-10 2021-11-09 Not sure University SARS-CoV-2 00:00:00 09:59:00 [facility] [place] [facility] (event) [place] Tobacco use and 2021-11-09 2021-11-09 Never used Universit y of exposure 00:00:00 00:00:00 [facility] Tobacco Comment 2021-11-09 2021-11-09 10-17-2021 Universit y of 00:00:00 00:00:00 [facility] Sex Assigned At [birth year] Universit y of 00:00:00 00:00:00 [facility] Smoking Status Start Date Stop Date Source Former smoker 2021-11-09 00:00:00 2021-11-09 00:00:00 Universi ty of [facility] Medications Ordered Filled Start Stop Current Ordering Indication Dosage Frequency Signature Comments Components Source Medication Medication Date Date Medication? Clinician (SIG) Name Name mirtazapine Yes 15mg Take 15 mg Univers 15 mg 4-04 by mouth ity of tablet 15:44: at [place] [id number] bedtime. Medical Branch OLANZapine Yes 10mg Take 10 mg U nivers (ZYPREXA) 4-04 by mouth ity of 10 mg 15:44: daily. [place] [address] Medical Branch OLANZapine Yes 5mg Take 5 mg Un jaye (ZYPREXA) 4-04 by mouth ity of 2.5 mg 15:44: every [place] [address] morning. Medical Branch PARoxetine Yes 30mg Take 30 mg U nivers (PAXIL) 30 -04 by mouth ity o f mg tablet 15:44: daily. [address] Branch bacitracin- Yes [id number] .5[in_u Place 0.5 Univers polymyxin B [id number] s] Inches in i ty of oph 00:00: right eye [place] 500-10,000 00 every 12 Medic al unit/gram (twelve) Branch ophthalmic hours. ointment Apply to right eye incision artificial Yes [id number] 1[drp] Place 1 Univers tears,hypro 3 [id number] Drop in ity of [place], 00:[place] 0.5 % 00 4 (four) Medical ophthalmic times Branch drops daily. HYDROcodone 2015-08 Yes 1{tbl} Take 1 Un jaye -acetaminop 0-26 tablet by ity of hen (NORCO 00:00: mouth [place] 5) 5-325 mg 00 every 6 Medic al tablet (six) Branch hours as needed for Pain (scale 4-6) or Pain (scale 7-10). cyclobenzap 2015-08 Yes 10mg Take 1 Univ ers rine 0-26 tablet by ity of (FLEXERIL) 00:00: mouth [place] 10 mg 00 (three) Medical tablet times Branch daily. docusate 2015-08 Yes 100mg Take 1 Univer s (COLACE) 0-26 capsule by ity o f 100 mg 00:00: mouth [place] capsule 00 daily. Medical Branch ibuprofen 2015-08 Yes 600mg Take 1 Unive rs (MOTRIN) 0-26 tablet by ity of 600 mg 00:00: mouth [place] tablet 00 every 6 Medical (six) Branch hours as needed for Pain (scale 4-6). Vital Signs Vital Name Observation Time Observation Value Comments Source Body temperature 2021-11-27 20:43:00 36.67 Georgette Univ ersity [facility] Body height 2021-11-27 20:43:00 167.6 cm [facility] Body weight 2021-11-27 20:43:00 70.534 kg [facility] BMI 2021-11-27 20:43:00 25.10 kg/m2 [facility] Procedures This patient has no known procedures. Encounters Start End Encounter Admission Attending Care Care Encounter Source Date/Time Date/Time Type Type Clinicians Facility Department ID 2021-11-27 2021-11-27 Office REMEDIOS Hernandez [id number] [facility] 15:30:00 16:12:16 Visit Wander Guillermo [id number] it y of [facility] [id number] [facility] as BANK [id number] [facility] BLDG. 144 Branch Results This patient has no known results.
[2022-04-14] MEDS ORDERED: BUPIVACAINE 0.5% PF 10 ML VIAL ONE (23:13)
[2022-04-14] MEDS ORDERED: TETANUS & DIPHTHERIA TOX,ADULT 0.5 ML VIAL ONE (23:27)
[2022-04-15 00:39] LABS: Hematocrit 40.3 % (39.6-49.0); MCV 87.2 fL (80-100); MPV 6.7 fL (7.6-11.3); RBC Red Blood Cell Count 4.62 M/uL (4.33-5.43)
[2022-04-15 00:43] LABS: Protime INR 1.06
--- NOTE | 2022-04-15 00:46 | ER ---
Nurse's Notes [facility] Name: Fransisco Mata Age: 32 yrs Sex: Male : 1990 Arrival Date: 04/14/2022 Time: 22:23 Bed 10 Private MD: Diagnosis: Presentation: 04/14 22:27 Chief complaint: Patient states: "I have been drinking and I fell and hit my face but I hb don't recall falling." Laceration noted to left upper lip, bleeding controlled. Unknown LOC. Coronavirus screen: At this time, the client does not indicate any symptoms associated with coronavirus-19. Ebola Screen: No symptoms or risks identified at this time. Initial Sepsis Screen: Does the patient meet any 2 criteria? No. Patient's initial sepsis screen is negative. Does the patient have a suspected source of infection? No. Patient's initial sepsis screen is negative. Risk Assessment: Do you want to hurt yourself or someone else? Patient reports no desire to harm self or others. Onset of symptoms was April 14, 2022. 22:27 Method Of Arrival: Ambulatory hb 22:27 Acuity: ANA 3 hb Historical: - Allergies: 22:29 No Known Allergies; hb - PMHx: 22:29 adhd; Anxiety; Bipolar disorder; depressive disorder; Groin Hernia; hb - PSHx: 22:29 Metal Darrell in Right Femur; hb - Immunization history:: Client reports having NOT received the Covid vaccine. - Social history:: Smoking status: Patient reports the use of cigarette tobacco products. Screenin:00 Abuse screen: Denies threats or abuse. Denies injuries from another. Nutritional kb3 screening: No deficits noted. Tuberculosis screening: No symptoms or risk factors identified. Fall Risk Fall in past 12 months (25 points). No secondary diagnosis (0 pts). No IV (0 pts). Ambulatory Aid- None/Bed Rest/Nurse Assist (0 pts). Gait- Normal/Bed Rest/Wheelchair (0 pts) Mental Status- Oriented to own ability (0 pts). Total Morrow Fall Scale indicates Low Risk Score (25-44 pts). Fall prevention measures have been instituted. Frequent Obs/Assesments occuring As available Patient and Family Educated on Fall Prevention Program and strategies. Assessment: 23:00 Reassessment: No changes from previously documented assessment. General: Appears in no kb3 apparent distress. comfortable, slender, unkempt, Behavior is calm, cooperative. Pain: Complains of pain in upper vermilion border and left corner of mouth Pain does not radiate. Pain currently is 5 out of 10 on a pain scale. Pain began Approximately 1800. Neuro: No deficits noted. Denies weakness blurred vision dizziness, headache. Injury Description: Laceration sustained to upper vermilion border is full thickness, 0.5 to 2.5 cm long, not bleeding, was sustained 4-6 hours ago. no active bleeding noted at this time. 23:00 General: Received care of pt from triage. Pt is AAO x4, gait steady, no ataxia noted. kb3 Pt reports he slipped and struck his face on unknown object at approximately 1800 tonight. Unknown if LOC. Pt reports having several drinks prior to fall. 3cm vertical laceration to left upper ankush border noted. Laceration extend completely through to inside of lip. Pt reports 2 loose teeth in upper left jaw. Small abrasion with quarter-sized area of swelling noted to left parietal scalp. No bleeding noted. . 04/15 00:31 General: Behavior is agitated, drowsy, Patient states that he unable to urinate at this tw5 time.. 00:35 General: General: Security stated that patient left " He is gone, he grabbed his girl tw5 and they left.". Vital Signs: 04/14 22:27 BP 148 / 88; Pulse 84; Resp 16; Temp 97.8; Pulse Ox 100% on R/A; Weight 63.5 kg; Height hb 5 ft. 6 in. (167.64 cm); Pain 6/10; 22:27 Body Mass Index 22.60 (63.50 kg, 167.64 cm) hb ED Course: 22:23 Patient arrived in ED. bp1 22:28 Triage completed. hb 22:29 Arm band placed on. hb 22:30 Kunal Khan PA is PHCP. [facility] 22:31 Ryan Wallace MD is Attending Physician. [facility] 23:00 Patient has correct armband on for positive identification. Bed in low position. Call kb3 light in reach. 23:00 Assist provider with laceration repair using sutures. Set up tray. Performed by Kunal HERNANDEZ. 23:03 Sully Fish, RN is Primary Nurse. kb3 04/15 00:20 Initial lab(s) drawn, by me, sent to lab. Inserted saline lock: 20 gauge in right tw5 antecubital area, using aseptic technique. Blood collected. 00:30 Acetaminophen Sent. tw 00:30 Basic Metabolic Panel Sent. 00:30 CBC with Diff Sent. tw 00:30 ETOH Level Sent. tw 00:30 Hepatic Function Sent. tw 00:30 PT-INR Sent. 00:30 Ptt, Activated Sent. tw 00:30 Salicylate Sent. tw 00:38 Patient left without informing staff and IV in place. Provider, Security and [employer] tw5 notified. Administered Medications: 04/14 23:00 Drug: Marcaine (bupivacaine) (0.5 %) 10 ml {Note: aminsistered by provider at bedside tw5 .} Volume: 10 ml; Route: Infiltration; 23:20 Not Given (Patient Refused; Pt reports that he has has a tetanus vaccine within the [facility] last 5 years and does not want the boosterr): Tetanus-Diphtheria Toxoid Adult 0.5 ml IM once; Provide Vaccine Information Statement (VIS). Medication: 23:00 VIS not applicable for this client. 3 Outcome: 04/15 00:46 Patient left the ED. 3 Signatures: Kunal Khan PA PA jmm Baxter, Heather, RN RN hb Emma, Stacey julian Roderick, Loly tw5 Riya Levy RN RN 3 Sully Fish, RN RN 3 Corrections: (The following items were deleted from the chart) 04/14 22:32 22:27 Chief complaint: Patient states: "I have been drinking and I fell and hit my face hb but I don't recall falling." Laceration noted to left upper lip, bleeding controlled. hb 22:32 22:27 Acuity: ANA 4 hb hb 23:48 23:42 Reassessment: No changes from previously documented assessment. kb3 kb3 23:48 23:42 General: Appears in no apparent distress. comfortable, slender, unkempt, Behavior kb3 is calm, cooperative, kb3 23:48 23:42 Pain: Complains of pain in upper vermilion border and left corner of mouth Pain kb3 does not radiate. Pain currently is 5 out of 10 on a pain scale. Pain began Approximately 1800 kb3 23:48 23:42 Neuro: No deficits noted. Denies weakness blurred vision dizziness, headache kb3 kb3 23:48 23:42 Injury Description: Laceration sustained to upper vermilion border is full kb3 thickness, 0.5 to 2.5 cm long, not bleeding, was sustained 4-6 hours ago. no active bleeding noted at this time. kb3 23:49 23:00 Fall Risk Fall in past 12 months (25 points). No secondary diagnosis (0 pts). No kb3 IV (0 pts). Ambulatory Aid- None/Bed Rest/Nurse Assist (0 pts). Gait- Normal/Bed Rest/Wheelchair (0 pts) Mental Status- Oriented to own ability (0 pts). Total Morrow Fall Scale indicates Low Risk Score (25-44 pts). kb3 04/15 00:37 00:31 General: Behavior is drowsy, tw5 tw5 00:37 00:35 General: Behavior is agitated, tw5 tw5
[2022-04-15 01:11] LABS: ALT/SGPT 47 U/L (12-78); AST/SGOT 47 U/L (15-37); Albumin 3.9 g/dL (3.4-5.0); Alkaline Phosphatase 49 U/L (45-117); BUN Blood Urea Nitrogen 20 mg/dL (7-18); Bicarbonate 30 mmol/L (21-32); Bilirubin Direct 0.1 mg/dL (0-0.2); Bilirubin Total 0.5 mg/dL (0.2-1.0); Glomerular Filtration Rate 117 ml/min (=/>90); Glucose Level 131 mg/dL (74-106); Potassium 3.6 mmol/L (3.5-5.1); Protein, Total 6.8 g/dL (6.4-8.2); Sodium Level 136 mmol/L (136-145); Troponin High Sensitivity 4.4 pg/mL (<58.9)
[2022-04-15 03:47] VITALS: BP 148/88; TEMP 97.8; O2SAT 100
--- NOTE | 2022-04-16 08:10 | EKG ---
Test Date: 2022-04-15 Test Time: 00:18:09 Denture Contour Wire Specialist: MEASUREMENT RESULTS: Intervals: Rate: 77 SC: 124 QRSD: 102 QT: 366 QTc: 414 [place]: P: 13 SC: 124 QRS: 71 T: 43 INTERPRETIVE STATEMENTS: Normal sinus rhythm Normal ECG Compared to ECG 07/20/2021 08:12:26 Sinus arrhythmia no longer present Right-axis deviation no longer present Electronically Signed On 04-16-22 08:06:37 CDT by Teodoro Segura
== END 2022-04-15 00:46 | disposition left against medical advice (07) ==
LOC: ER 22:21
PROC: 0JQ10ZZ Repair Face Subcutaneous Tissue and Fascia, Open Approach (ICD-10-PCS; principal; 2022-04-15)
DX: S01.511A Laceration without foreign body of lip, initial encounter (principal); Z72.0 Tobacco use
CPT/HCPCS: 36415; 80048; 80076; 80320; 80329; 84484; 85025; 85610; 85730; 90714; 93005; 99284

== ENCOUNTER 2022-12-24 21:46 | Emergency (ER) | payer SELFPAY ==
--- OUTSIDE RECORDS SUMMARY | 2022-12-24 21:49 | XMS REPORT | Continuity of Care Document ---
:1990 Author Organization [facility] t Address [address] [facility] [place] [place] [id number] Care Team Providers Name Role Phone [facility] Primary Care Physician KAUSHAL VALERIO Attending Clinician Unavailable Kaushal Valerio MD Attending Clinician JOSEFINA MARRERO Attending Clinician Unavailable VINEET GARCIA Attending Clinician Unavailable RACHEL ROBERTS Attending Clinician Unavailable Rachel Mclean Attending Clinician ESPERANZA REES Attending Clinician Unavailable KAUSHAL VALERIO Admitting Clinician Unavailable Kaushal Valerio MD Admitting Clinician RACHEL ROBERTS Admitting Clinician Unavailable ESPERANZA REES Admitting Clinician Unavailable Payers Payer Name Policy Type Policy Number Effective Date Expiration Date S [facility] [id number] 0000-03-03 [facility] 00:00:00 Problems Condition Condition Condition Status Onset Resolution [...] Added automatic ally from request for surgery [id number] AMS AMS Disease Active Univers (altered (altered [...] [place] end [place] 00 Medical right right Branch femur femur Splenic Splenic Disease Active 2015-08 Univers laceration laceration 0-04 it y of 00:00: [place] 00 [facility] Branch Allergies, Adverse Reactions, Alerts This patient has no known allergies or adverse reactions. Social History Social Habit Start Date Stop Date Quantity Comments Source Alcohol intake 2021-12-22 2021-12-22 Current drinker Unive rsity of 00:00:00 00:00:00 of alcohol [facility] (finding) Branch Exposure to 2021-10-10 2021-11-09 Not sure [facility] SARS-CoV-2 00:00:00 09:59:00 [facility] (event) Branch Tobacco use and 2021-11-09 2021-11-09 Never used Universit y of exposure 00:00:00 00:00:00 [facility] Tobacco Comment 2021-11-09 2021-11-09 10-17-2021 Universit y of 00:00:00 00:00:00 [facility] Sex Assigned At [birth year] Universit y of 00:00:00 00:00:00 [facility] Smoking Status Start Date Stop Date Source Former smoker 2021-11-09 00:00:00 2021-11-09 00:00:00 Universi ty of [facility] Medications Ordered Filled Start Stop Current Ordering Indication Dosage Frequency Signature Comments Components Source Medication Medication Date Date Medication? Clinician (SIG) Name Name mirtazapine Yes 15mg Take 15 mg Univers 15 mg 4-04 by mouth ity of tablet 15:44: at [place] [address] bedtime. Medical Branch OLANZapine Yes 10mg Take 10 mg U nivers (ZYPREXA) 4-04 by mouth ity of 10 mg 15:44: daily. [place] [address] Medical Branch OLANZapine Yes 5mg Take 5 mg Un jaye (ZYPREXA) 4-04 by mouth ity of 2.5 mg 15:44: every [place] tablet morning. Medical Branch PARoxetine Yes 30mg Take 30 mg U nivers (PAXIL) 30 4-04 by mouth ity o f mg tablet 15:44: daily. [place] [address] Medical Branch artificial Yes [id number] 1[drp] Place 1 Univers tears,hypro 3-24 [id number] Drop in ity of [place], 00:00: right eye [place] 0.5 % 00 4 (four) Medical ophthalmic times Branch drops daily. bacitracin- Yes [id number] .5[in_u Place 0.5 Univers polymyxin B 3-24 [id number] s] Inches in i ty of oph 00:00: right eye [place] 500-10,000 00 every 12 Medic al unit/gram (twelve) Branch ophthalmic hours. ointment Apply to right eye incision HYDROcodone 2015-08 Yes 1{tbl} Take 1 Un [...] Body temperature 2021-11-27 20:43:00 36.67 [facility] Body height 2021-11-27 20:43:00 167.6 cm [facility] Body weight 2021-11-27 20:43:00 70.534 kg [facility] BMI 2021-11-27 20:43:00 25.10 kg/m2 [facility] Procedures This patient has no known procedures. Encounters Start End Encounter Admission Attending Care Care Encounter Source Date/Time Date/Time Type Type Clinicians Facility Department ID 2021-11-10 Outpatient Libby VALERIO [facility] [id number] Univers 09:04:05 KAUSHAL bhaktajessie [facility] 2021-11-09 Outpatient Libby VALERIO [facility] [id number] Univers 09:55:33 KAUSHAL silva [facility] 2021-11-06 Outpatient Libby VALERIO [facility] [id number] Univers 12:33:41 KAUSHAL ity [facility] 2021-06-26 Emergency [facility] [id number] Univers 05:00:29 ity [facility] 2021-06-25 Emergency [facility] [id number] Univers 23:21:36 ity [facility] 2021-06-25 Emergency [facility] [id number] Univers 03:53:46 ity [facility] 2021-11-27 2021-11-27 Outpatient Libby VALERIO [facility] [id number] Univers 15:30:00 16:12:16 KAUSHAL itjessie [facility] 2021-11-27 2021-11-27 Office REMEDIOS Valerio [id number] Univers 15:30:00 16:12:16 Visit Kaushal Guillermo [id number] yony y [facility] [id number] Francois as BANK [phone] [facility] BLDG. 144 Branch 2021-11-16 2021-11-16 Outpatient Libby VALERIO [facility] [id number] Univers 08:39:00 13:41:00 KAUSHAL silva [facility] 2021-11-16 2021-11-16 Hospital DEBRA Valerio [id number] Univers 08:39:00 13:41:00 Encounter Kaushal BRIDGES [id number] ity of [facility] [id number] Francois as [id number] [facility] 104 Branch 2021-11-16 2021-11-16 Surgery DEBRA Valerio [id number] Univers 09:50:00 12:08:00 Kaushal BRIDGES [id number] it y of [facility] [id number] Francois as [id number] [facility] 103 Branch 2021-11-16 2021-11-16 [facility] [id number] Univers 08:39:00 08:39:00 KAUSHAL silva [facility] 2021-11-15 2021-11-15 Telephone REMEDIOS Valerio [id number] Univers 00:00:00 00:00:00 Kaushal Guillermo [id number] it y of [facility] [id number] Francois as BANK [phone] [facility]. [address] [place] 2021-11-06 2021-11-06 [facility] [id number] Univers 11:30:00 12:06:03 KAUSHAL shira [facility] 2021-11-06 2021-11-06 Office REMEDIOS Valerio [id number] Univers 11:30:00 12:06:03 Visit Kaushal Guillermo [id number] it y of [facility] [id number] Francois as BANK [phone] [facility]. [address] [place] 2021-11-03 2021-11-03 [facility] [id number] Univers 11:00:00 11:00:00 JOSEFINA bhaktajessie [facility] 2021-11-03 2021-11-03 [facility] [id number] Univers 10:15:00 10:15:00 VINEET [facility] 2021-10-26 2021-10-27 Emergency X [facility] ERT [id number] Univers 22:26:00 02:48:00 RACHEL [facility] 2021-10-26 2021-10-27 Emergency [facility] [id number] Univers 22:26:00 02:48:00 Rachel MCC[facility] [id number] [facility] [id number] [facility] [id number] [place] [address] Branch 2020-01-01 2020-01-02 Emergency X [facility] ERT [id number] Univers 23:51:46 02:50:00 ESPERANZA [facility] Results This patient has no known results.
[2022-12-24 22:32] LABS: Absolute Lymphocytes (CBC) 1.8 K/uL (0.7-4.9); Lymphocytes % 23.9 % (15.3-44.8); MCV 87.2 fL (80-100); RBC Red Blood Cell Count 4.82 M/uL (4.33-5.43)
[2022-12-24 22:33] LABS: Protime INR 1.08
[2022-12-24 22:52] LABS: ALT/SGPT 38 U/L (16-61); AST/SGOT 36 U/L (15-37); Albumin 4.3 g/dL (3.4-5.0); Alkaline Phosphatase 62 U/L (45-117); BUN Blood Urea Nitrogen 20 mg/dL (7-18); Bicarbonate 27 mEq/L (21-32); Bilirubin Direct 0.2 mg/dL (0-0.2); Bilirubin Total 0.6 mg/dL (0.2-1.0); Glomerular Filtration Rate 101 ml/min (=/>90); Glucose Level 107 mg/dL (74-106); Potassium 3.2 mEq/L (3.5-5.1); Protein, Total 7.5 g/dL (6.4-8.2); Sodium Level 135 mEq/L (136-145)
[2022-12-24 23:15] LABS: Specific Gravity > 1.030 (1.005-1.030); Urine Bacteria None Seen /HPF (<20); Urine Bilirubin NEGATIVE (Negative); Urine Blood Negative (Negative); Urine Clarity Clear (Clear); Urine Color Yellow (Yellow); Urine Glucose NEGATIVE (Negative); Urine Mucus 3+ /HPF (None Seen); Urine Protein 1+ (Negative); Urine RBC <5 /HPF (None Seen); Urine Urobilinogen 1+ (Normal)
[2022-12-24 23:21] LABS: Barbiturates NEGATIVE (NEGATIVE); Benzodiazepines NEGATIVE (NEGATIVE); Cocaine POSITIVE (NEGATIVE); METHAMPHETAM POSITIVE (NEGATIVE); Methadone NEGATIVE (NEGATIVE); Opiates NEGATIVE (NEGATIVE); Phencyclidine NEGATIVE (NEGATIVE); THC Cannibis POSITIVE (NEGATIVE)
--- NOTE | 2022-12-25 01:50 | EDPHYS ---
Physician Documentation [facility] Name: Fransisco Mata Age: 32 yrs Sex: Male : 1990 Arrival Date: 12/24/2022 Time: 21:46 Bed 3 Private MD: ED Physician Jordan Velásquez HPI: 12/24 22:27 This 32 yrs old Male presents to ER via EMS with complaints of Altered mental status. rt 22:27 Patient presents to the ED with an altered mental status. He was reportedly going in rt the streets, was picked up by the police. Patient was found to have a glass pipe that tested positive for methamphetamine, fentanyl. On the care home, the patient became unresponsive. EMS was called, gave 5 mg of Narcan which improved the patient's mental status, not back to baseline. Patient cannot recall the events of tonight but still symptomatic confused. Denies other acute complaints at this time, denies trauma. Symptoms are moderate severity, no other aggravating alleviating factors.. 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 - Social history:: Smoking status: Patient reports the use of cigarette tobacco products, smokes one pack cigarettes per day. Patient uses alcohol, occasionally. street drugs, cocaine, Methamphetamine (Meth). - Family history:: not pertinent. ROS: 22:27 Unable to obtain ROS due to altered mental status. rt Exam: 22:27 Constitutional: This is a well developed, well nourished patient who is awake, alert, rt and in no acute distress. Head/Face: Normocephalic, atraumatic. Chest/axilla: Normal chest wall appearance and motion. Nontender with no deformity. No lesions are appreciated. Cardiovascular: Regular rate and rhythm with a normal S1 and S2. No gallops, murmurs, or rubs. Normal PMI, no JVD. No pulse deficits. Respiratory: Lungs have equal breath sounds bilaterally, clear to auscultation and percussion. No rales, rhonchi or wheezes noted. No increased work of breathing, no retractions or nasal flaring. Abdomen/GI: Soft, non-tender, with normal bowel sounds. No distension or tympany. No guarding or rebound. No evidence of tenderness throughout. Skin: Warm, dry with normal turgor. Normal color with no rashes, no lesions, and no evidence of cellulitis. MS/ Extremity: Pulses equal, no cyanosis. Neurovascular intact. Full, normal range of motion. 22:27 Eyes: Pinpoint pupils, extraocular muscles intact. 22:27 ECG was reviewed by the Attending Physician. 22:27 Neuro: Slurred, incoherent speech, moves all 4 extremities equally. 22:27 Psych: Not assessable. Vital Signs: 21:55 BP 108 / 70; Pulse 78; Resp 13; Temp 99.4(O); Pulse Ox 96% on R/A; Weight 70.76 kg (R); lg3 Height 5 ft. 6 in. (R); 22:26 BP 109 / 67; Pulse 65; Resp 14; Pulse Ox 95% on R/A; mb9 22:52 BP 110 / 68; Pulse 72; Resp 14 S; Pulse Ox 94% on R/A; lg3 23:40 BP 106 / 65; Pulse 60; Resp 14; Pulse Ox 94% on R/A; mb9 12/25 01:14 BP 114 / 76; Pulse 55; Resp 16 S; Pulse Ox 96% on R/A; lg3 12/24 21:55 Body Mass Index 25.18 (70.76 kg, 167.64 cm) lg3 [place] Coma Score: 12/24 22:02 Eye Response: to voice(3). Motor Response: localizes pain(5). Verbal Response: lg3 confused(4). Total: 12. MDM: 21:48 Patient medically screened. rt 12/25 01:52 Differential Diagnosis: CVA, alcohol intoxication, hypoglycemia, overdose, UTI. Data rt reviewed: vital signs, nurses notes, lab test result(s), EKG, radiologic studies. Consideration of Admission/Observation Escalation of care including admission/observation considered. Independent interpretation of the following test(s) in the Emergency Department CT Scan: My interpretation is No hemorrhage seen on my interpretation of the CT scan images. Test considered but Not performed:. Care significantly affected by the following Social Determinants of Health: Inadequate housing, Misuse of alcohol and/or drugs. Counseling: I had a detailed discussion with the patient and/or guardian regarding: the historical points, exam findings, and any diagnostic results supporting the discharge/admit diagnosis, lab results, radiology results, the need for outpatient follow up, to return to the emergency department if symptoms worsen or persist or if there are any questions or concerns that arise at home. Response to treatment: the patient's symptoms have resolved after treatment, Awake, alert, and oriented, ambulation without difficulty.. 12/24 21:56 Order name: Acetaminophen; Complete Time: 23: rt 12/24 21:56 Order name: Basic Metabolic Panel; Complete Time: 23: rt 12/24 21:56 Order name: CBC with Diff; Complete Time: 23: rt 12/24 21:56 Order name: ETOH Level; Complete Time: 23: rt 12/24 21:56 Order name: Hepatic Function; Complete Time: 23: rt 12/24 21:56 Order name: PT-INR; Complete Time: 23: rt 12/24 21:56 Order name: Ptt, Activated; Complete Time: 23: rt 12/24 21:56 Order name: Salicylate; Complete Time: 23: rt 12/24 21:56 Order name: Urinalysis w/ reflexes; Complete Time: 23: rt 12/24 21:56 Order name: Urine Drug Screen; Complete Time: 23:22 rt 12/24 21:56 Order name: CT Head Brain wo Cont rt 12/24 21:56 Order name: EKG; Complete Time: 21:57 rt 12/24 21:56 Order name: EKG - Nurse/Tech; Complete Time: 22: rt 12/24 21:56 Order name: IV Saline Lock; Complete Time: 22: rt 12/24 21:56 Order name: Labs collected and sent; Complete Time: 22: rt 12/24 21:56 Order name: Suicide Screening ([place]); Complete Time: 22:04 rt 12/24 23:03 Order name: Straight Catheterization; Complete Time: 23:03 lg3 EC/01 22:27 Rate is 66 beats/min. Rhythm is regular, Normal Sinus Rhythm with No ectopy. QRS [place] rt is Normal. LA interval is normal. QRS interval is normal. QT interval is normal. No Q waves. T waves are Normal. No ST changes noted. Interpreted by me. Administered Medications: No medications were administered Disposition Summary: 12/25/22 01:49 Discharge Ordered Location: Law Enforcement rt Problem: new rt Symptoms: are resolved rt Condition: Stable rt Diagnosis - Polysubstance abuse rt Followup: rt - With: Private Physician - When: 2 - 3 days - Reason: Discharge Instructions: - Discharge Summary Sheet rt - Illegal Drug Use Information, Adult rt Forms: - Medication Reconciliation Form rt - Thank You Letter rt - Antibiotic Education rt - Prescription Opioid Use rt Signatures: Dispatcher [employer] Smiley Meek, ROMAINE RN lg3 Jordan Velásquez MD MD rt
--- NOTE | 2022-12-25 01:50 | ER ---
Nurse's Notes [facility] Name: Fransisco Mata Age: 32 yrs Sex: Male : 1990 Arrival Date: 12/24/2022 Time: 21:46 Bed 3 Private MD: Diagnosis: Polysubstance abuse Presentation: 12/24 21:55 Chief complaint: EMS states: found in middle of street non coherent. police found drug lg3 paraphernalia on scene. 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 Coronavirus screen: Client denies travel out of the [place] in the last 14 days. At this time, the client does not indicate any symptoms associated with coronavirus-19. Ebola Screen: No symptoms or risks identified at this time. Initial Sepsis Screen: Does the patient meet any 2 criteria? No. Patient's initial sepsis screen is negative. Does the patient have a suspected source of infection? No. Patient's initial sepsis screen is negative. Risk Assessment: Do you want to hurt yourself or someone else? Patient reports no desire to harm self or others. Onset of symptoms was December 24, 2022. 21:55 Method Of Arrival: EMS: [facility] lg3 21:55 Acuity: ANA 2 lg3 Triage Assessment: 21:58 General: Appears in no apparent distress. Behavior is flat. Pain: Denies pain. EENT: lg3 Eyes with exudate noted from right eye. Neuro: Juares Agitation-Sedation Scale (RASS): -3 Moderate Sedation Level of Consciousness is lethargic, Oriented to person. Cardiovascular: No deficits noted. Capillary refill < 3 seconds Clubbing of nail beds is absent JVD is absent Patient's skin is warm and dry. Respiratory: No deficits noted. Airway is patent Respiratory effort is even, unlabored, Respiratory pattern is regular, symmetrical. GI: No deficits noted. Abdomen is flat, non-distended. : No deficits noted. No signs and/or symptoms were reported regarding the genitourinary system. Derm: Skin is intact, Skin is dry, Skin is normal, Skin temperature is warm. Musculoskeletal: No deficits noted. Circulation, motion, and sensation intact. Range of motion: intact in all extremities. 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 - Social history:: Smoking status: Patient reports the use of cigarette tobacco products, smokes one pack cigarettes per day. Patient uses alcohol, occasionally. street drugs, cocaine, Methamphetamine (Meth). - Family history:: not pertinent. Screenin:02 [facility] ED Fall Risk Assessment (Adult) History of falling in the last 3 months, lg3 including since admission No falls in past 3 months (0 pts). Abuse screen: Denies threats or abuse. Denies injuries from another. Nutritional screening: No deficits noted. Tuberculosis screening: No symptoms or risk factors identified. Assessment: 22:02 General: see triage assessment . lg3 22:52 Reassessment: Patient appears in no apparent distress at this time. No changes from lg3 previously documented assessment. Patient and/or family updated on plan of care and expected duration. Pain level reassessed. General: Behavior is flat. 05 01:14 Reassessment: Patient appears in no apparent distress at this time. No changes from lg3 previously documented assessment. General: Behavior is drowsy, flat. 01:58 General: Appears in no apparent distress. comfortable, Behavior is calm, cooperative. lg3 Pain: Denies pain. Neuro: No deficits noted. Juares Agitation-Sedation Scale (RASS): 0 - Alert and Calm Level of Consciousness is awake, alert, obeys commands, Oriented to person, place, time, situation. Cardiovascular: No deficits noted. Respiratory: Airway is patent Respiratory effort is even, unlabored, Respiratory pattern is regular, symmetrical. Musculoskeletal: No deficits noted. Circulation, motion, and sensation intact. Range of motion: intact in all extremities. Vital Signs: 12/24 21:55 BP 108 / 70; Pulse 78; Resp 13; Temp 99.4(O); Pulse Ox 96% on R/A; Weight 70.76 kg (R); lg3 Height 5 ft. 6 in. (R); 22:26 BP 109 / 67; Pulse 65; Resp 14; Pulse Ox 95% on R/A; mb9 22:52 BP 110 / 68; Pulse 72; Resp 14 S; Pulse Ox 94% on R/A; lg3 23:40 BP 106 / 65; Pulse 60; Resp 14; Pulse Ox 94% on R/A; mb9 12/25 01:14 BP 114 / 76; Pulse 55; Resp 16 S; Pulse Ox 96% on R/A; lg3 12/24 21:55 Body Mass Index 25.18 (70.76 kg, 167.64 cm) lg3 Sven Coma Score: 12/24 22:02 Eye Response: to voice(3). Motor Response: localizes pain(5). Verbal Response: lg3 confused(4). Total: 12. ED Course: 21:48 Patient arrived in ED. rv1 21:48 Jordan Velásquez MD is Attending Physician. rt 21:55 Smiley Mayes, RN is Primary Nurse. lg3 21:58 Triage completed. lg3 21:58 Arm band placed on right wrist. lg3 22:02 Patient has correct armband on for positive identification. Placed in gown. Bed in low lg3 position. Call light in reach. Side rails up X2. police at bedside. Client placed on continuous cardiac and pulse oximetry monitoring. NIBP monitoring applied. radiation monitor on. Door closed. Noise minimized. Warm blanket given. 22:02 Inserted saline lock: 20 gauge in right forearm, using aseptic technique. Blood lg3 collected. 22:26 EKG done, by ED staff, reviewed by Jordan Velásquez MD. mb9 22:27 Acetaminophen Sent. mb9 22:27 Basic Metabolic Panel Sent. mb9 22:27 CBC with Diff Sent. mb9 22:27 ETOH Level Sent. mb9 22:27 Hepatic Function Sent. mb9 22:27 PT-INR Sent. mb9 22:27 Ptt, Activated Sent. mb9 22:27 Salicylate Sent. mb9 23:03 Urinalysis w/ reflexes Sent. lg3 23:03 Urine Drug Screen Sent. lg3 23:05 No provider procedures requiring assistance completed. mb9 23:06 CT Head Brain wo Cont In Process Unspecified. EDMS 23:06 Straight cath inserted, using sterile technique, 14 Fr. Specimen obtained. Returned mb9 pricila urine. Patient tolerated well. 12/25 01:59 IV discontinued, intact, bleeding controlled, No redness/swelling at site. Pressure lg3 dressing applied. Administered Medications: No medications were administered Medication: 12/24 23:05 VIS not applicable for this client. mb9 Outcome: 12/25 01:49 Discharge ordered by . rt 01:58 Discharged to Law Enforcement lg3 01:58 Condition: stable 01:58 Discharge instructions given to patient, Instructed on discharge instructions, follow up and referral plans. Demonstrated understanding of instructions, follow-up care. 01:59 Patient left the ED. lg3 Signatures: Dispatcher [employer] Smiley Meek RN RN lg3 Patito Mo RN RN mb9 Jordan Velásquez MD MD rt Iza Greco rv1
[2022-12-25 02:08] VITALS: TEMP 99.4
[2022-12-25 02:16] VITALS: BP 114/76; O2SAT 96
--- NOTE | 2022-12-25 16:06 | EKG ---
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
--- NOTE | 2022-12-25 17:36 | RAD REPORT ---
EXAM DESCRIPTION: CT - Head Brain Wo Bandar - 12/25/2022 6:38 am CLINICAL HISTORY: The patient is 32 years old and is Male; AMS TECHNIQUE: Axial computed tomography images of the head/brain without intravenous contrast. Sagitt al and coronal reformatted images were created and reviewed. This CT exam was performed using one o r more of the following dose reduction techniques: automated exposure control, adjustment of the mA and/or kV according to patient size, and/or use of iterative reconstruction technique. COMPARISON: No relevant prior studies available. FINDINGS: BRAIN: A megacisterna magna versus posterior fossa arachnoid cyst is noted. The lagunas-whi te matter differentiation is preserved . No hemorrhage. No significant white matter disease. No e amira. No extra-axial fluid collections. VENTRICLES: Unremarkable. No ventriculomegaly. BONES/JOINTS: No acute fracture. SOFT TISSUES: Unremarkable. SINUSES: Unremarkable as visualized. No acute sinusitis. MASTOID AIR CELLS: Unremarkable as visualized. No mastoid effusion. ORBITS: Unremarkable as visualized. IMPRESSION: No acute intracranial findings. Electronically signed by: Janee Reeder MD 12/25/2022 12:06 AM CDT Due to temporary technical issues with the PACS/Fluency reporting system, reports are being signed by the in house radiologists without review as a courtesy to insure prompt reporting. The interpreting radiologist is fully responsible for the content of the report.
== END 2022-12-25 01:59 ==
LOC: ER 21:46
DX: F19.10 Other psychoactive substance abuse, uncomplicated (principal)
CPT/HCPCS: 36415; 51702; 70450; 80048; 80076; 80307; 81001; 85025; 85610; 85730; 93005; 99284; G0480

== ENCOUNTER 2023-11-25 05:33 | Emergency (ER) | payer SELFPAY ==
--- OUTSIDE RECORDS SUMMARY | 2023-11-25 05:36 | XMS REPORT | Continuity of Care Document ---
Author Name Unknown Address [address] [place] [address] [facility] Address [address] [place] [address] Care Team Providers Care Carbon Paper Interleafer Name Role Phone [facility] Primary Care Physician Brie KAUSHAL Dueñas Attending Clinician Unavailable KELLI GAUTAM Attending Clinician Unavailable Moe Krishna Attending Clinician [phone] Kelli Gautam MD Attending Clinician [phone] Kaushal Hernandez MD Attending Clinician [phone] JOSEFINA MARRERO Attending Clinician Unavailab VINEET Man Attending Clinician Unavailable RACHEL ROBERTS Attending Clinician Unavailable Rachel Mclean Attending Clinician [phone] ESPERANZA REES Attending Clinician Unavail able KAUSHAL HERNANDEZ Admitting Clinician Unavailable MOE RIVERA Admitting Clinician Unavailable Kaushal Hernandez MD Admitting Clinician [phone] RACHEL ROBERTS Admitting Clinician Unavailable ESPERANZA REES Admitting Clinician Unavail able Payers Payer Name Policy Type Policy Number Effective Date Expirati on Date Source [facility] [id number] 9918-03-03 00:00:00 Problems Condition Name Condition Details Condition Category Status Onset Date Resolution Date Last Treatment Date Treating Clinician Comments Source Closed fracture of right orbital floor with routine healing, subsequent encounter Closed fracture of right orbital floor with routine healing, subsequent encounter Disease Active 3-14 00:00: 00 Overview: Formattin g of this note might be different from the original. Added automatic ally from request for surgery [id number] [facility] AMS (altered mental status) AMS (altered mental status) Disease Active 6-05 00:00: 00 [facility] Concussion Concussion Disease Active 2015-08 0 00:00: 00 [facility] Leg laceration , right, initial encounter Leg laceration , right, initial encounter Disease Active 2015-08 0 00:00: 00 [facility] Elbow laceration , right, initial encounter Elbow laceration , right, initial encounter Disease Active 2015-08 0 00:00: 00 [facility] Nasal bone fracture Nasal bone fracture Disease Active 2015-08 0 00:00: 00 [facility] Closed fracture of distal end of right femur Closed fracture of distal end of right femur Disease Active 2015-08 0 00:00: 00 [facility] Splenic laceration Splenic laceration Disease Active 2015-08 0-04 00:00: 00 [facility] Allergies, Adverse Reactions, Alerts Allergy Name Allergy Type Status Severity Reaction(s) Onset Date Inactive Date Treating Clinician Comments Source NO KNOWN ALLERGIE S Drug Class Active [facility] Social History Social Habit Start Date Stop Date Quantity Comments Source History of tobacco use Current smoker [facility] Alcohol intake 2023-02-12 00:00:00 2023-02-12 00:00:00 Current drinker of alcohol (finding) [facility] Exposure to SARS-CoV-2 (event) 2021-10-10 00:00:00 2021-11-09 09:59:00 Not sure [facility] Tobacco use and exposure 2021-11-09 00:00:00 2021-11-09 00:00:00 Smokeless tobacco non-user [facility] Tobacco Comment 2021-11-09 00:00:00 2021-11-09 00:00:00 10-17-2021 [facility] Sex Assigned At 1990 00:00:00 1990 00:00:00 [facility] Smoking Status Start Date Stop Date Source Ex-smoker 2021-11-09 00:00:00 2021-11-09 00:00:00 [facility] Medications Ordered Medication Name Filled Medication Name Start Date Stop Date Current Medication? Ordering Clinician Indication Dosage Frequency Signature (SIG) Comments Components Source iopamidol (ISOVUE 370-500 mL) injection 85 mL 02-13 01:15: 00 02-13 01:15 :00 No [id number] 85mL 85 mL, Intravenou s, ONCE, 1 dose, On Sat02/12/23 at 2015, Routine [facility] ketorolac (TORADOL) injection 30 mg 02-12 23:45: 00 02-13 00:55 :00 No 30mg 30 mg, Slow IV Push, ONCE, 1 dose, On Sat02/12/23 at 1845, Routine [facility] mirtazapine 15 mg tablet 11-27 15:44: 32 Yes 15mg Take 15 mg by mouth at bedtime. [facility] OLANZapine (ZYPREXA) 10 mg tablet 11-27 15:44: 32 Yes 10mg Take 10 mg by mouth daily. [facility] OLANZapine (ZYPREXA) 2.5 mg tablet 11-27 15:44: 32 Yes 5mg Take 5 mg by mouth every morning. [facility] PARoxetine (PAXIL) 30 mg tablet 11-27 15:44: 32 Yes 30mg Take 30 mg by mouth daily. [facility] mirtazapine 15 mg tablet 11-27 15:44: 32 Yes 15mg Take 15 mg by mouth at bedtime. [facility] OLANZapine (ZYPREXA) 10 mg tablet 11-27 15:44: 32 Yes 10mg Take 10 mg by mouth daily. [facility] OLANZapine (ZYPREXA) 2.5 mg tablet 11-27 15:44: 32 Yes 5mg Take 5 mg by mouth every morning. [facility] PARoxetine (PAXIL) 30 mg tablet 11-27 15:44: 32 Yes 30mg Take 30 mg by mouth daily. [facility] artificial tears,hypro mellose, 0.5 % ophthalmic drops 11-16 00:00: 00 Yes [id number] 1[drp] Place 1 Drop in right eye 4 (four) times daily. [facility] bacitracin- polymyxin B oph 500-10,000 unit/gram ophthalmic ointment 11-16 00:00: 00 Yes [id number] 881457 .5[in_u s] Place 0.5 Inches in right eye every 12 (twelve) hours. Apply to right eye incision [facility] artificial tears,hypro mellose, 0.5 % ophthalmic drops 11-16 00:00: 00 Yes [id number] 1[drp] Place 1 Drop in right eye 4 (four) times daily. [facility] bacitracin- polymyxin B oph 500-10,000 unit/gram ophthalmic ointment 11-16 00:00: 00 Yes [id number] 618560 .5[in_u s] Place 0.5 Inches in right eye every 12 (twelve) hours. Apply to right eye incision [facility] cyclobenzap rine (FLEXERIL) 10 mg tablet 2015-08 00:00: 00 Yes 10mg Take 1 tablet by mouth 3 (three) times daily. [facility] docusate (COLACE) 100 mg capsule 2015-08 00:00: 00 Yes 100mg Take 1 capsule by mouth daily. [facility] ibuprofen (MOTRIN) 600 mg tablet 2015-08 00:00: 00 Yes 600mg Take 1 tablet by mouth every 6 (six) hours as needed for Pain (scale 4-6). [facility] HYDROcodone -acetaminop hen (NORCO 5) 5-325 mg tablet 2015-08 00:00: 00 Yes 1{tbl} Take 1 tablet by mouth every 6 (six) hours as needed for Pain (scale 4-6) or Pain (scale 7-10). [facility] cyclobenzap rine (FLEXERIL) 10 mg tablet 2015-08 00:00: 00 Yes 10mg Take 1 tablet by mouth 3 (three) times daily. [facility] docusate (COLACE) 100 mg capsule 2015-08 00:00: 00 Yes 100mg Take 1 capsule by mouth daily. [facility] ibuprofen (MOTRIN) 600 mg tablet 2015-08 00:00: 00 Yes 600mg Take 1 tablet by mouth every 6 (six) hours as needed for Pain (scale 4-6). [facility] HYDROcodone -acetaminop hen (NORCO 5) 5-325 mg tablet 2015-08 00:00: 00 Yes 1{tbl} Take 1 tablet by mouth every 6 (six) hours as needed for Pain (scale 4-6) or Pain (scale 7-10). [facility] Vital Signs Vital Name Observation Time Observation Value Comments S shilophill Systolic blood pressure 2023-02-13 03:00:00 92 mm[Hg] [facility] Diastolic blood pressure 2023-02-13 03:00:00 56 mm[Hg] [facility] Heart rate 2023-02-13 03:00:00 63 /min [facility] Respiratory rate 2023-02-13 03:00:00 17 /min [facility] Oxygen saturation in Arterial blood by Pulse oximetry 2023-02-13 03:00:00 96 /min [facility] Body temperature 2023-02-12 23:31:00 36.39 Georgette [facility] Body height 2023-02-12 23:31:00 167.6 cm [facility] Body weight 2023-02-12 23:31:00 72.576 kg [facility] BMI 2023-02-12 23:31:00 25.82 kg/m2 [facility] Body temperature 2021-11-27 20:43:00 36.67 Georgette [facility] Body height 2021-11-27 20:43:00 167.6 cm [facility] Body weight 2021-11-27 20:43:00 70.534 kg [facility] BMI 2021-11-27 20:43:00 25.10 kg/m2 [facility] Procedures Procedure Date / Time Performed Performing Clinicia n Source URINALYSIS 2023-02-13 01:00:00 Moe Rivera [facility] LACTIC ACID WHOLE BLOOD 2023-02-13 00:58:00 Moe Rivera [facility] CT ABDOMEN PELVIS W CONTRAST 2023-02-13 00:25:11 Moe Rivera [facility] COMP. METABOLIC PANEL ([id number]) 2023-02-12 23:37:00 Moe Rivera [facility] CBC WITH DIFF 2023-02-12 23:37:00 Moe Rivera [facility] Encounters Start Date/Time End Date/Time Encounter Type Admission Type Attending Clinicians Care Facility Care Department Encounter ID Source 2021-11-10 09:04:05 Outpatient KAUSHAL RUSSELL [facility] [id number] [facility] 2021-11-09 09:55:33 Outpatient KAUSHAL RUSSELL [facility] [id number] [facility] 2021-11-06 12:33:41 Outpatient KAUSHAL RUSSELL [facility] [id number] [facility] 2021-06-26 05:00:29 Emergency [facility] [id number] [facility] 2021-06-25 23:21:36 Emergency [facility] [id number] [facility] 2021-06-25 03:53:46 Emergency [facility] [id number] [facility] 2023-02-12 18:26:00 2023-02-12 22:36:00 Emergency KELLI HERNANDEZ [facility] ERT [id number] [facility] 2023-02-12 18:26:00 2023-02-12 22:36:00 Emergency Moe Rivera Donnell [facility] [id number] [facility] 2021-11-27 15:30:00 2021-11-27 16:12:16 Outpatient KAUSHAL RUSSELL [facility] [id number] [facility] 2021-11-27 15:30:00 2021-11-27 16:12:16 Office Visit [facility]. [id number] [id number] [id number] [id number] [facility] 2021-11-16 08:39:00 2021-11-16 13:41:00 Outpatient Libby HERNANDEZ [facility] [id number] [facility] 2021-11-16 08:39:00 2021-11-16 13:41:00 Hospital Encounter [facility] [id number] [id number] [id number] [facility] 2021-11-16 09:50:00 2021-11-16 12:08:00 Surgery [facility] [id number] [id number] 4.2.7.2.686 [id number] [facility] 2021-11-16 08:39:00 2021-11-16 08:39:00 Outpatient KAUSHAL RUSSELL [facility] [id number] [facility] 2021-11-15 00:00:00 2021-11-15 00:00:00 Telephone Kaushal Hernandze [facility] BLD[facility]. [id number] [id number] [id number] [id number] [facility] 2021-11-06 11:30:00 2021-11-06 12:06:03 Outpatient KAUSHAL RUSSELL [facility] [id number] [facility] 2021-11-06 11:30:00 2021-11-06 12:06:03 Office Visit Kaushal Hernandez [facility]. [id number] [id number] [id number] [id number] [facility] 2021-11-03 11:00:00 2021-11-03 11:00:00 Outpatient R JOSEFINA MARRERO [facility] [id number] [facility] 2021-11-03 10:15:00 2021-11-03 10:15:00 Outpatient R VINEET GARCIA [facility] [id number] [facility] 2021-10-26 22:26:00 2021-10-27 02:48:00 Emergency X RACHEL ROBERTS [facility] ERT [id number] [facility] 2021-10-26 22:26:00 2021-10-27 02:48:00 Emergency RobertsRachel rios R [facility] [id number] [id number] [id number] [id number] [facility] 2020-01-01 23:51:46 2020-01-02 02:50:00 Emergency X ESPERANZA REES [facility] ERT [id number] [facility] Results Test Description Test Time Test Comments Results Result [id number] 00:13:36* Test Item Value Reference Range Interpretation Comme nts WBC (test code = 6690-2) 7.82 See_Comment [Automated messa ge] The system which generated this result transmitted reference range: 4.20 - 10.70 10*3/?L. The reference range was not used to interpret this result as normal/abnormal. RBC (test code = 789-8) 4.88 See_Comment [Automated messa ge] The system which generated this result transmitted reference range: 4.26 - 5.52 10*6/?L. The reference range was not used to interpret this result as normal/abnormal. HGB (test code = 718-7) 14.3 g/dL 12.2-16.4 HCT (test code = 4544-3) 41.3 % 38.4-49.3 MCV (test code = 787-2) 84.6 fL 81.7-95.6 MCH (test code = 785-6) 29.3 pg 26.1-32.7 MCHC (test code = 786-4) 34.6 g/dL 31.2-35.0 RDW-SD (test code = 48005-4) 37.9 fL 38.5-51.6 L RDW-CV (test code = 788-0) 12.5 % 12.1-15.4 PLT (test code = 777-3) 275 See_Comment [Automated messa ge] The system which generated this result transmitted reference range: 150 - 328 10*3/?L. The reference range was not used to interpret this result as normal/abnormal. MPV (test code = 54714-6) 10.1 fL 9.8-13.0 NRBC/100 WBC (test code = 0004979617) 0.0 See_Comment [Automated [employer] Environment ssage] The system which generated this result transmitted reference range: 0.0 - 10.0 /100 WBCs. The reference range was not used to interpret this result as normal/abnormal. NRBC x10^3 (test code = 4675471042) See_Comment [Automated messa ge] The system which generated this result transmitted reference range: 10*3/?L. The reference range was not used to interpret this result as normal/abnormal. GRAN MAT (NEUT) % (test code = 770-8) 55.4 % IMM GRAN % (test code = 2174864455) 0.30 % LYMPH % (test code = 736-9) 26.6 % MONO % (test code = 5905-5) 13.6 % EOS % (test code = 713-8) 3.1 % BASO % (test code = 706-2) 1.0 % GRAN MAT x10^3(ANC) (test code = 1030275281) 4.34 10*3/uL 1.99-6.95 IMM GRAN x10^3 (test code = 3207376962) 0.00-0.06 LYMPH x10^3 (test code = 731-0) 2.08 10*3/uL 1.09-3.23 MONO x10^3 (test code = 742-7) 1.06 10*3/uL 0.36-1.02 H EOS x10^3 (test code = 711-2) 0.24 10*3/uL 0.06-0.53 BASO x10^3 (test code = 704-7) 0.08 10*3/uL 0.01-0.09 Lab Interpretation (test code = 94488-0) Abnormal [facility]
--- NOTE | 2023-11-25 05:50 | EDPHYS ---
Physician Documentation [facility] Name: Fransisco Mata Age: 33 yrs Sex: Male : 1990 Arrival Date: 11/25/2023 Time: 05:33 Bed 19 Private MD: ED Physician Johnson Humphreys HPI: 11/24 05:47 This 33 yrs old Male presents to ER via Unassigned with complaints of Hernia pain in rn growing. 05:47 Patient reports increase in pain at left inguinal hernia. Patient reports hernia goes rn into the left scrotum, is able to push it back in, but swelling is keeping him from working. Has not followed up with surgery as an outpatient.. Onset: The symptoms/episode began/occurred at an unknown time. Severity of symptoms: At their worst the symptoms were moderate in the emergency department the symptoms are unchanged. The patient has experienced similar episodes in the past. 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 - Social history:: Smoking status: Patient reports the use of cigarette tobacco products, smokes one pack cigarettes per day. - Family history:: not pertinent. - Hospitalizations: : No recent hospitalization is reported. ROS: 05:47 Constitutional: Negative for fever, chills, and weight loss, Abdomen/GI: Negative for rn abdominal pain, nausea, vomiting, diarrhea, and constipation, positive for left inguinal hernia with swelling into left hemiscrotum Exam: 05:47 Constitutional: This is a well developed, well nourished patient who is awake, alert, rn and in no acute distress. Abdomen/GI: Soft, nontender. No distention. No guarding or rebound. Male : Moderate sized hernia that extends into left hemiscrotum, easily reducible without pain medication. Tolerated well. Completely reduced manually. Vital Signs: 05:39 Weight 68.04 kg; Height 5 ft. 6 in. ; Pain 10/10; pf1 05:46 BP 112 / 72; Pulse 96; Resp 17; Temp 98; Pulse Ox 99% on R/A; rv 05:39 Body Mass Index 24.21 (68.04 kg, 167.64 cm) pf1 05:39 Pain Scale: Adult pf1 MDM: 05:37 Patient medically screened. rn 05:47 Differential Diagnosis Inguinal hernia. Data reviewed: vital signs, nurses notes, old rn medical records, and as a result, I will discharge patient. Counseling: I had a detailed discussion with the patient and/or guardian regarding the historical points, exam findings, and any diagnostic results supporting the discharge/admit diagnosis, the need for outpatient follow up, to return to the emergency department if symptoms worsen or persist or if there are any questions or concerns that arise at home. Response to treatment: the patient's symptoms have markedly improved after treatment, and as a result, I will discharge patient. Special discussion: I discussed with the patient/guardian in detail that at this point there is no indication for admission to the hospital. It is understood, however, that if the symptoms persist or worsen the patient needs to return immediately for re-evaluation. Based on the history and exam findings, there is no indication for further emergent testing or inpatient evaluation. I discussed with the patient/guardian the need to see the general surgeon for further evaluation of the symptoms. ED course: No indication for emergent admission or surgery at this time. Hernia is easily reducible manually. Patient even states this continues to go in and out and able to position easily. Recommended more supportive underwear and follow-up with general surgery as an outpatient.. Administered Medications: No medications were administered Disposition Summary: 11/25/23 05:50 Discharge Ordered Notes: Location: Home rn Problem: chronic rn Symptoms: have improved rn Condition: Stable rn Diagnosis - Unilateral inguinal hernia, without obstruction or gangrene, recurrent rn Followup: rn - With: Gary Santizo MD - When: As needed - Reason: Recheck today's complaints, Re-evaluation by your physician Discharge Instructions: - Discharge Summary Sheet rn - Inguinal Hernia, Adult, [id number] rn Forms: - Medication Reconciliation Form rn - Thank You Letter rn - Antibiotic internet marketing assistant - Prescription Opioid Use rn - Patient Portal Instructions rn - Leadership Thank You Letter rn Signatures: Johnson Humphreys MD MD rn Vicente, Ronaldo, RN RN rv
--- NOTE | 2023-11-25 05:50 | ER ---
Nurse's Notes [facility] Name: Fransisco Mata Age: 33 yrs Sex: Male : 1990 Arrival Date: 11/25/2023 Time: 05:33 Bed 19 Private MD: Diagnosis: Unilateral inguinal hernia, without obstruction or gangrene, recurrent Presentation: 11/24 05:39 Chief complaint: Patient states: left groin pain of 10 with hernia,onset 3 years, worse pf1 in the past month. 05:39 Coronavirus screen: Vaccine status: Patient reports being unvaccinated. Client denies pf1 travel out of the [place] in the last 14 days. At this time, the client does not indicate any symptoms associated with coronavirus-19. Ebola Screen: Patient negative for fever greater than or equal to 101.5 degrees Fahrenheit, and additional compatible Ebola Virus Disease symptoms. Initial Sepsis Screen: Does the patient meet any 2 criteria? No. Patient's initial sepsis screen is negative. Does the patient have a suspected source of infection? No. Patient's initial sepsis screen is negative. Risk Assessment: Do you want to hurt yourself or someone else? Patient reports no desire to harm self or others. Onset of symptoms was October 25, 2023. 05:39 Method Of Arrival: Ambulatory pf1 05:39 Acuity: ANA 4 pf1 Triage Assessment: 05:39 General: Appears in no apparent distress. uncomfortable, well groomed, well developed, pf1 Behavior is calm, cooperative, appropriate for age, quiet. 05:39 Pain: Complains of pain in left groin Pain currently is 10 out of 10 on a pain scale. pf1 : Reports pain in left groin. 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 - Social history:: Smoking status: Patient reports the use of cigarette tobacco products, smokes one pack cigarettes per day. - Family history:: not pertinent. - Hospitalizations: : No recent hospitalization is reported. Screenin:47 [facility] ED Fall Risk Assessment (Adult) History of falling in the last 3 months, rv including since admission No falls in past 3 months (0 pts) Score/Fall Risk Level 0 - 2 = Low Risk Oriented to surroundings, Maintained a safe environment, Educated pt \T\ family on fall prevention, incl call for assistance when getting out of bed, Assessed \T\ reinforced patient's understanding of fall precautions. Abuse screen: Denies threats or abuse. Denies injuries from another. Nutritional screening: No deficits noted. Tuberculosis screening: No symptoms or risk factors identified. Assessment: 05:46 General: Appears uncomfortable, Behavior is calm, cooperative. Pain: Complains of pain rv in LEFT TESTICLE. Neuro: Level of Consciousness is awake, alert, obeys commands, Oriented to person, place, time, situation. Cardiovascular: Capillary refill < 3 seconds Patient's skin is warm and dry. Respiratory: Airway is patent Respiratory effort is even, unlabored. GI: No signs and/or symptoms were reported involving the gastrointestinal system. : Reports pain in left scrotum, testicle. Derm: Skin is intact. Vital Signs: 05:39 Weight 68.04 kg; Height 5 ft. 6 in. ; Pain 10/10; pf1 05:46 BP 112 / 72; Pulse 96; Resp 17; Temp 98; Pulse Ox 99% on R/A; rv 05:39 Body Mass Index 24.21 (68.04 kg, 167.64 cm) pf1 05:39 Pain Scale: Adult pf1 ED Course: 05:36 Patient arrived in ED. gm2 05:37 Johnson Humphreys MD is Attending Physician. rn 05:47 Patient has correct armband on for positive identification. Client placed on continuous rv cardiac and pulse oximetry monitoring. NIBP monitoring applied. 05:47 No provider procedures requiring assistance completed. Patient did not have IV access rv during this emergency room visit. 05:49 Gary Santizo MD is Referral Physician. rn 05:52 Triage completed. pf1 Administered Medications: No medications were administered Medication: 05:47 VIS not applicable for this client. rv Outcome: 05:47 Discharged to home ambulatory, rv 05:47 Condition: good 05:47 Discharge instructions given to patient, Instructed on discharge instructions, follow up and referral plans. Demonstrated understanding of instructions, follow-up care, 05:50 Discharge ordered by MD. rn 05:53 Patient left the ED. rv Signatures: Johnson Humphreys MD MD rn Vicente, Ronaldo, RN RN rv Eboni Campoverde, RN RN pf1 Karen Cason 2
[2023-11-25 11:21] VITALS: BP 112/72; TEMP 98; O2SAT 99
== END 2023-11-25 05:53 | disposition home or self-care (01) ==
LOC: ER 05:33
DX: K40.90 Unilateral inguinal hernia, without obstruction or gangrene, not specified as recurrent (principal)
CPT/HCPCS: 99283

== ENCOUNTER 2024-02-11 18:25 | Emergency (ER) | payer OTHER ==
[2024-02-11] MEDS ORDERED: NA CHLORIDE 0.9% 2,000 ML ONE (18:35)
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
[2024-02-11 20:49] VITALS: BP 169/63; O2SAT 100
== END 2024-02-11 20:30 ==
LOC: ER 18:25
PROC: 30233N1 Transfusion of Nonautologous Red Blood Cells into Peripheral Vein, Percutaneous Approach (ICD-10-PCS; principal; 2024-02-11)
DX: I46.9 Cardiac arrest, cause unspecified (principal); S27.1XXA Traumatic hemothorax, initial encounter; S21.339A Puncture wound without foreign body of unspecified front wall of thorax with penetration into thoracic cavity, initial encounter; X95.9XXA Assault by unspecified firearm discharge, initial encounter
CPT/HCPCS: 92950 ×2; 36430; P9016 ×4; J7030